=== PATIENT | female | born 1940 | race Caucasian/White ===

== ENCOUNTER 2020-06-09 10:06 | Inpatient (IN) | payer MEDICARE ==
[2020-06-09] MEDS ORDERED: oxyCODONE 5 MG Tab PO PRN (14:51)
[2020-06-09] MEDS ORDERED: Albuterol 8 GM Inhaler INH PRN (14:51)
[2020-06-09] MEDS: Oxybutynin 5 MG Tab PO SCH ×2 (15:52→20:02)
[2020-06-09] MEDS: Acetaminophen 325 MG Tab PO PRN (15:52)
--- NOTE | 2020-06-09 16:38 | PCM.HP.2 ---
H&P History of Present Illness - General Date of Service: 06/09/20 Admit Problem/Dx: Admission Diagnosis/Problem Admission Diagnosis/Problem Hip fracture requiring operative repair Source of Information: Patient History Limitations: Reports: No Limitations - History of Present Illness Initial Comments - Free Text/Narative: Macey is a 80 yo female who had ESTEFANI( left) last week.She is here for rehab.She complains of being tired,but her hip pain is much improved,and relived by Tyenol. She had post anemia( hgb 7.9) on discharge. Her pas medical history is extensive,with HTN,CAD,COPD,chronic chest pain,anxiety,Constipation,CKD Stage III left hip Pain Score (Numeric/FACES): 5 - Related Data Allergies/Adverse Reactions: Allergies Allergy/AdvReac Type Severity Reaction Status Date / Time No Known Allergies Allergy Verified 05/28/18 09:00 Home Medications: Home Meds Omeprazole [Prilosec] 20 mg PO DAILY@0600 06/12/14 [History] atorvaSTATin [Lipitor] 10 mg PO BEDTIME 05/27/18 [History] Acetaminophen [Tylenol] 650 mg PO Q4H PRN 06/09/20 [History] Albuterol Sulfate 3 ml IH QID PRN 06/09/20 [History] Albuterol [Ventolin HFA] 2 puff IH Q4H PRN 06/09/20 [History] Aspirin [Halfprin] 81 mg PO BID 06/09/20 [History] Diltiazem [Dilacor XR] 240 mg PO DAILY 06/09/20 [History] Docusate Sodium 100 mg PO DAILY 06/09/20 [History] Docusate Sodium/Sennosides [Senna Plus] 1 tab PO BID 06/09/20 [History] Ferrous Fumarate/Vitamin C [Vitron-C] 1 tab PO DAILY 06/09/20 [History] Fluticasone Propion/Salmeterol [Advair 250-50 Diskus] 1 puff IH BID 06/09/20 [History] Lactulose [Chronulac] 15 ml PO TID 06/09/20 [History] Morphine [MS Contin] 15 mg PO BID 06/09/20 [History] Ondansetron [Zofran ODT] 4 mg PO Q4H PRN 06/09/20 [History] Oxybutynin 5 mg PO TID 06/09/20 [History] Venlafaxine [Effexor XR] 150 mg PO DAILY 06/09/20 [History] oxyCODONE 5 mg PO Q4H PRN 06/09/20 [History] oxyCODONE 10 mg PO Q4H PRN 06/09/20 [History] polyethylene glycoL 3350 [MiraLAX] 17 gm PO DAILY 06/09/20 [History] Past Medical History HEENT History: Reports: Allergic Rhinitis, Cataract, Glaucoma, Hard of Hearing, Impaired Vision Cardiovascular History: Reports: High Cholesterol, Hypertension, Other (See Below) Other Cardiovascular History: ASHD Respiratory History: Reports: Sleep Apnea, Other (See Below) Other Respiratory History: TOBACCO USER Gastrointestinal History: Reports: Colon Polyp, GERD Genitourinary History: Reports: Urinary Incontinence [employer] A[employer]LYST History: Reports: , Other (See Below) Other OB/BYN History: ABNORMAL PAP Musculoskeletal History: Reports: Back Pain, Chronic, Other (See Below) Other Musculoskeletal History: LUMBAR SPINAL STENOSIS, DDD Neurological History: Psychiatric History: Reports: Depression Endocrine/Metabolic History: Reports: None Hematologic History: Reports: Anemia Immunologic History: Reports: None Oncologic (Cancer) History: Reports: None Dermatologic History: Reports: None - Past Surgical History Head Surgeries/Procedures: Reports: None HEENT Surgical History: Reports: Cataract Surgery, Eye Surgery Cardiovascular Surgical History: Reports: None Respiratory Surgical History: Reports: None GI Surgical History: Reports: Colonoscopy Female Surgical History: Reports: None Endocrine Surgical History: Reports: None Neurological Surgical History: Reports: Laminectomy, Lumbar Spine, Spinal Fusion Musculoskeletal Surgical History: Reports: None Oncologic Surgical History: Reports: None Dermatological Surgical History: Reports: None Social & Family History - Family History Family Medical History: No Pertinent Family History - Caffeine Use Caffeine Use: Reports: None H&P Review of Systems - Review of Systems: Review Of Systems: Comprehensive ROS is negative, except as noted in HPI. Exam - Exam Exam: See Below - Vital Signs Vital Signs: Last Vital Signs Temp 98.4 F 06/09/20 14:15 Pulse 59 L 06/09/20 14:15 Resp 15 06/09/20 14:15 BP 125/46 L 06/09/20 14:15 Pulse Ox 94 L 06/09/20 14:15 Weight: 71.668 kg - Exam Quality Assessment: DVT Prophylaxis General: Alert HEENT: PERRLA Neck: Supple Lungs: Clear to Auscultation Cardiovascular: Regular Rate GI/Abdominal Exam: Normal Bowel Sounds, Soft Extremities: Normal Inspection Neurological: Cranial Nerves Intact Neuro Extensive - Mental Status: Alert, Oriented x3 Psychiatric: Alert, Normal Affect Sepsis Event Note - Evaluation Sepsis Screening Result: No Definite Risk - Focused Exam Vital Signs: Vital Signs Temp Pulse Resp BP Pulse Ox 06/09/20 14:15 98.4 F 59 L 15 125/46 L 94 L - Problem List (1) H/O total hip arthroplasty SNOMED Code(s): 257965993370, 867568814924 ICD Code: Z96.649 - PRESENCE OF UNSPECIFIED ARTIFICIAL HIP JOINT Status: Acute Current Visit: Yes Qualifiers: Laterality: left Qualified Code(s): Z96.642 - Presence of left artificial hip joint (2) Debility SNOMED Code(s): 49313939 ICD Code: R53.81 - OTHER MALAISE Status: Acute Current Visit: Yes (3) HTN (hypertension) SNOMED Code(s): 69771493 ICD Code: I10 - ESSENTIAL (PRIMARY) HYPERTENSION Status: Chronic Current Visit: Yes Qualifiers: Hypertension type: essential hypertension Qualified Code(s): I10 - Essential (primary) hypertension (4) CAD (coronary artery disease) SNOMED Code(s): 51270454 ICD Code: I25.10 - ATHSCL HEART DISEASE OF [place] CORONARY ARTERY W/O ANG PCTRS Status: Chronic Current Visit: Yes Qualifiers: Coronary Disease-Associated Artery/Lesion type: [place] artery [place] vs. transplanted heart: [place] heart Associated angina: with stable angina Qualified Code(s): I25.118 - Atherosclerotic heart disease of [place] coronary artery with other forms of angina pectoris (5) MDD (major depressive disorder) SNOMED Code(s): 868283409 ICD Code: F32.9 - MAJOR DEPRESSIVE DISORDER, SINGLE EPISODE, UNSPECIFIED Status: Acute Current Visit: Yes Qualifiers: Major depression recurrence: recurrent Active/Remission status: currently active Major depression episode severity: moderate Qualified Code(s): F33.1 - Major depressive disorder, recurrent, moderate (6) Constipation SNOMED Code(s): 11061831 ICD Code: K59.00 - CONSTIPATION, UNSPECIFIED Status: Chronic Current Visit: Yes Qualifiers: Constipation type: unspecified constipation type Qualified Code(s): K59.00 - Constipation, unspecified (7) Anemia SNOMED Code(s): 576454494 ICD Code: D64.9 - ANEMIA, UNSPECIFIED Status: Acute Current Visit: Yes Qualifiers: Anemia type: iron deficiency (8) Constipation SNOMED Code(s): 71806234 ICD Code: K59.00 - CONSTIPATION, UNSPECIFIED Status: Chronic Current Visit: No Qualifiers: Constipation type: unspecified constipation type Qualified Code(s): K59.00 - Constipation, unspecified Problem List Initiated/Reviewed/Updated: Yes Orders Last 24hrs: Active Orders 24 hr Category Date Time Status Patient Status [ADT] Routine ADT 06/09/20 14:47 Active Height and Weight [RC] WEEKLY Care 06/09/20 14:47 Active Oxygen Therapy [RC] PRN Care 06/09/20 14:47 Active RT Aerosol Therapy [RC] ASDIRECTED Care 06/09/20 14:52 Active RT Post Treatment Assessment [RC] Click to Edit Care 06/09/20 14:52 Active Up With Assistance [RC] ASDIRECTED Care 06/09/20 14:47 Active VTE/DVT Education [RC] Per Unit Routine Care 06/09/20 14:47 Active Vital Signs [RC] PER UNIT ROUTINE Care 06/09/20 14:47 Active OT Evaluation and Treatment [CONS] Routine Cons 06/09/20 14:47 Active PT Evaluation and Treatment [CONS] Routine Cons 06/09/20 14:47 Active Regular Diet [DIET] Diet 06/09/20 Breakfast Active Acetaminophen [TylenoL] Med 06/09/20 14:51 Active 650 mg PO Q4H PRN Albuterol [Proventil Neb Soln] Med 06/09/20 14:51 Active 2.5 mg NEB QID PRN Albuterol [Ventolin HFA] Med 06/09/20 14:51 Active 0 gm INH Q4H PRN Ascorbic Acid [Vitamin C] Med 06/10/20 09:00 Active 500 mg PO DAILY Aspirin [Halfprin] Med 06/09/20 21:00 Active 81 mg PO BID Diltiazem [Dilacor XR] Med 06/10/20 09:00 Active 240 mg PO DAILY Docusate Sodium [Colace] Med 06/10/20 09:00 Active 100 mg PO DAILY Docusate Sodium/Sennosides [Senna Plus] Med 06/09/20 21:00 Active 1 tab PO BID Ferrous Sulfate Med 06/10/20 09:00 Active 325 mg PO DAILY Lactulose [Chronulac] Med 06/09/20 21:00 Active 10 gm PO TID Mometasone/Formoterol [Dulera 200-5 MCG] Med 06/09/20 21:00 Active 2 puff IH BID Morphine [MS Contin] Med 06/09/20 21:00 Active 15 mg PO BID Ondansetron [Zofran ODT] Med 06/09/20 14:51 Active 4 mg PO Q4H PRN Oxybutynin Med 06/09/20 15:00 Active 5 mg PO TID Pantoprazole [ProTONIX] Med 06/10/20 06:00 Active 40 mg PO DAILY@0600 Venlafaxine [Effexor XR] Med 06/10/20 09:00 Active 150 mg PO DAILY atorvaSTATin [Lipitor] Med 06/09/20 21:00 Active 10 mg PO BEDTIME oxyCODONE Med 06/09/20 14:51 Active 10 mg PO Q4H PRN oxyCODONE Med 06/09/20 14:51 Active 5 mg PO Q4H PRN polyethylene glycoL 3350 [MiraLAX] Med 06/10/20 09:00 Active 17 gm PO DAILY Resuscitation Status Routine Resus Stat 06/09/20 14:47 Ordered Medication Orders Acetaminophen (Tylenol) 650 mg PO Q4H PRN PRN Reason: mild pain Last Admin: 06/09/20 15:52 Dose: 650 mg Documented by: CLARY Albuterol (Ventolin Hfa) 0 gm INH Q4H PRN PRN Reason: Shortness of Breath Albuterol (Proventil Neb Soln) 2.5 mg NEB QID PRN PRN Reason: Shortness of Breath Ascorbic Acid (Vitamin C) 500 mg PO DAILY [facility] Aspirin (Halfprin) 81 mg PO BID [facility] Stop: 07/06/20 23:59 Atorvastatin Calcium (Lipitor) 10 mg PO BEDTIME [facility] Diltiazem HCl (Dilacor Xr) 240 mg PO DAILY [facility] Docusate Sodium (Colace) 100 mg PO DAILY [facility] Ferrous Sulfate (Ferrous Sulfate) 325 mg PO DAILY [facility] Lactulose (Chronulac) 10 gm PO TID [facility] Mometasone Furoate/Formoterol Fumar (Dulera 200-5 Mcg) 2 puff IH BID [facility] Morphine Sulfate (Ms Contin) 15 mg PO BID [facility] Ondansetron HCl (Zofran Odt) 4 mg PO Q4H PRN PRN Reason: Nausea Oxybutynin Chloride (Oxybutynin) 5 mg PO TID [facility] Last Admin: 06/09/20 15:52 Dose: 5 mg Documented by: CLARY Oxycodone HCl (Oxycodone) 5 mg PO Q4H PRN PRN Reason: pain 4-6/10 Oxycodone HCl (Oxycodone) 10 mg PO Q4H PRN PRN Reason: pain 7-10/10 Pantoprazole Sodium (Protonix) 40 mg PO DAILY@0600 [facility] Polyethylene Glycol (Miralax) 17 gm PO DAILY [facility] Senna/Docusate Sodium (Senna Plus) 1 tab PO BID [facility] Venlafaxine HCl (Effexor Xr) 150 mg PO DAILY [facility] Assessment/Plan Comment:: Admit to Swing bed/with orders from [place]. PT/OT consult.Resume Home Meds-I appreciate Pharmacy's help.
[2020-06-09] MEDS: Lactulose Soln 10 GM/15 ML 15 ML UD Cup PO SCH (20:00)
[2020-06-09] MEDS: Formoterol/Mometasone 200-5 MCG 8.8 GM Inhaler IH SCH (20:00)
[2020-06-09] MEDS: Aspirin 81 MG Tab.EC PO SCH (20:01)
[2020-06-09] MEDS: atorvaSTATin 10 MG Tab PO SCH (20:01)
[2020-06-09] MEDS: Morphine 15 MG Tab.ER PO SCH (20:10)
[2020-06-10] MEDS: oxyCODONE 5 MG Tab PO PRN (03:19)
[2020-06-10] MEDS: Ondansetron 4 MG Tab.DIS PO PRN ×2 (05:57→20:32)
[2020-06-10] MEDS: Pantoprazole 40 MG Tab.CR PO SCH (05:57)
[2020-06-10] MEDS: Acetaminophen 325 MG Tab PO PRN (06:54)
[2020-06-10] MEDS: Formoterol/Mometasone 200-5 MCG 8.8 GM Inhaler IH SCH ×2 (08:28→20:27)
[2020-06-10] MEDS: Lactulose Soln 10 GM/15 ML 15 ML UD Cup PO SCH ×3 (08:29→20:27)
[2020-06-10] MEDS: Docusate Sodium 100 MG Cap PO SCH (08:29)
[2020-06-10] MEDS: Diltiazem 240 MG Cap.ER PO SCH (08:29)
[2020-06-10] MEDS: Venlafaxine 150 MG Cap.ER PO SCH (08:29)
[2020-06-10] MEDS: Ferrous Sulfate 325 MG Tab PO SCH (08:30)
[2020-06-10] MEDS: Polyethylene Glycol 3350 Powder 17 GM Packet PO SCH (08:30)
[2020-06-10] MEDS: Aspirin 81 MG Tab.EC PO SCH ×2 (08:30→20:28)
[2020-06-10] MEDS: Oxybutynin 5 MG Tab PO SCH ×3 (08:31→20:29)
[2020-06-10] MEDS: Ascorbic Acid 500 MG Tab PO SCH (08:32)
[2020-06-10] MEDS: Morphine 15 MG Tab.ER PO SCH ×2 (08:34→20:33)
[2020-06-10] MEDS: Ibuprofen 200 MG Tab PO SCH ×2 (13:38→17:56)
[2020-06-10] MEDS: Acetaminophen 500 MG Tab PO SCH ×2 (13:39→17:57)
[2020-06-10] MEDS: atorvaSTATin 10 MG Tab PO SCH (20:28)
[2020-06-11] MEDS: Acetaminophen 500 MG Tab PO SCH ×4 (00:25→17:57)
[2020-06-11] MEDS: Ibuprofen 200 MG Tab PO SCH ×4 (00:25→17:56)
[2020-06-11] MEDS: Pantoprazole 40 MG Tab.CR PO SCH (05:35)
[2020-06-11] MEDS: Ondansetron 4 MG Tab.DIS PO PRN ×2 (05:38→11:06)
[2020-06-11] MEDS: Docusate Sodium 100 MG Cap PO SCH (08:18)
[2020-06-11] MEDS: Formoterol/Mometasone 200-5 MCG 8.8 GM Inhaler IH SCH ×2 (08:18→20:36)
[2020-06-11] MEDS: Lactulose Soln 10 GM/15 ML 15 ML UD Cup PO SCH ×3 (08:18→20:36)
[2020-06-11] MEDS: Ferrous Sulfate 325 MG Tab PO SCH (08:19)
[2020-06-11] MEDS: Aspirin 81 MG Tab.EC PO SCH ×2 (08:19→20:37)
[2020-06-11] MEDS: Venlafaxine 150 MG Cap.ER PO SCH (08:19)
[2020-06-11] MEDS: Morphine 15 MG Tab.ER PO SCH ×2 (08:20→20:40)
[2020-06-11] MEDS: Polyethylene Glycol 3350 Powder 17 GM Packet PO SCH (08:20)
[2020-06-11] MEDS: Oxybutynin 5 MG Tab PO SCH ×3 (08:22→20:37)
[2020-06-11] MEDS: Ascorbic Acid 500 MG Tab PO SCH (08:23)
[2020-06-11] MEDS: Diltiazem 240 MG Cap.ER PO SCH (08:26)
[2020-06-11] MEDS: atorvaSTATin 10 MG Tab PO SCH (20:37)
[2020-06-12] MEDS: Ibuprofen 200 MG Tab PO SCH ×4 (00:24→17:14)
[2020-06-12] MEDS: Acetaminophen 500 MG Tab PO SCH ×4 (00:24→17:14)
[2020-06-12] MEDS: Pantoprazole 40 MG Tab.CR PO SCH (05:32)
[2020-06-12] MEDS: Lactulose Soln 10 GM/15 ML 15 ML UD Cup PO SCH ×3 (09:34→20:37)
[2020-06-12] MEDS: Docusate Sodium 100 MG Cap PO SCH (09:34)
[2020-06-12] MEDS: Formoterol/Mometasone 200-5 MCG 8.8 GM Inhaler IH SCH ×2 (09:35→20:37)
[2020-06-12] MEDS: Venlafaxine 150 MG Cap.ER PO SCH (09:35)
[2020-06-12] MEDS: Diltiazem 240 MG Cap.ER PO SCH (09:35)
[2020-06-12] MEDS: Ferrous Sulfate 325 MG Tab PO SCH (09:35)
[2020-06-12] MEDS: Morphine 15 MG Tab.ER PO SCH ×2 (09:36→20:37)
[2020-06-12] MEDS: Aspirin 81 MG Tab.EC PO SCH ×2 (09:36→20:38)
[2020-06-12] MEDS: Oxybutynin 5 MG Tab PO SCH ×3 (09:37→20:37)
[2020-06-12] MEDS: Ascorbic Acid 500 MG Tab PO SCH (09:38)
[2020-06-12] MEDS: Polyethylene Glycol 3350 Powder 17 GM Packet PO SCH (09:39)
[2020-06-12] MEDS: oxyCODONE 5 MG Tab PO PRN (11:18)
[2020-06-12] MEDS: Ondansetron 4 MG Tab.DIS PO PRN (12:20)
[2020-06-12] MEDS ORDERED: traMADol 50 MG Tab PO PRN (13:18)
[2020-06-12] MEDS: atorvaSTATin 10 MG Tab PO SCH (20:38)
[2020-06-13] MEDS: Ibuprofen 200 MG Tab PO SCH ×4 (00:10→17:49)
[2020-06-13] MEDS: Acetaminophen 500 MG Tab PO SCH ×4 (00:10→17:49)
[2020-06-13] MEDS: Pantoprazole 40 MG Tab.CR PO SCH (06:05)
[2020-06-13] MEDS: Ondansetron 4 MG Tab.DIS PO PRN ×3 (08:13→20:09)
[2020-06-13] MEDS: Morphine 15 MG Tab.ER PO SCH ×2 (08:14→20:09)
[2020-06-13] MEDS: Lactulose Soln 10 GM/15 ML 15 ML UD Cup PO SCH ×3 (08:17→20:09)
[2020-06-13] MEDS: Diltiazem 240 MG Cap.ER PO SCH (08:17)
[2020-06-13] MEDS: Docusate Sodium 100 MG Cap PO SCH (08:17)
[2020-06-13] MEDS: Venlafaxine 150 MG Cap.ER PO SCH (08:18)
[2020-06-13] MEDS: Formoterol/Mometasone 200-5 MCG 8.8 GM Inhaler IH SCH ×2 (08:18→20:08)
[2020-06-13] MEDS: Aspirin 81 MG Tab.EC PO SCH ×2 (08:19→20:09)
[2020-06-13] MEDS: Ferrous Sulfate 325 MG Tab PO SCH (08:19)
[2020-06-13] MEDS: Polyethylene Glycol 3350 Powder 17 GM Packet PO SCH (08:20)
[2020-06-13] MEDS: Oxybutynin 5 MG Tab PO SCH ×3 (08:20→20:09)
[2020-06-13] MEDS: Ascorbic Acid 500 MG Tab PO SCH (08:21)
[2020-06-13] MEDS ORDERED: Aluminum Hydroxide/Magnesium Hydroxide Susp 30 ML Cup PO PRN (12:07)
[2020-06-13] MEDS: atorvaSTATin 10 MG Tab PO SCH (20:09)
[2020-06-14] MEDS: Acetaminophen 500 MG Tab PO SCH ×5 (00:03→23:56)
[2020-06-14] MEDS: Ibuprofen 200 MG Tab PO SCH ×3 (00:04→12:34)
[2020-06-14] MEDS: Pantoprazole 40 MG Tab.CR PO SCH (05:21)
[2020-06-14] MEDS: Ondansetron 4 MG Tab.DIS PO PRN (08:28)
[2020-06-14] MEDS: Morphine 15 MG Tab.ER PO SCH ×2 (08:28→20:07)
[2020-06-14] MEDS: Polyethylene Glycol 3350 Powder 17 GM Packet PO SCH (08:30)
[2020-06-14] MEDS: Lactulose Soln 10 GM/15 ML 15 ML UD Cup PO SCH (08:30)
[2020-06-14] MEDS: Oxybutynin 5 MG Tab PO SCH ×3 (08:32→20:01)
[2020-06-14] MEDS: Docusate Sodium 100 MG Cap PO SCH (08:32)
[2020-06-14] MEDS: Aspirin 81 MG Tab.EC PO SCH ×2 (08:33→20:01)
[2020-06-14] MEDS: Diltiazem 240 MG Cap.ER PO SCH (08:33)
[2020-06-14] MEDS: Venlafaxine 150 MG Cap.ER PO SCH (08:34)
[2020-06-14] MEDS: Ascorbic Acid 500 MG Tab PO SCH (08:34)
[2020-06-14] MEDS: Formoterol/Mometasone 200-5 MCG 8.8 GM Inhaler IH SCH ×2 (08:36→20:00)
[2020-06-14] MEDS: Ferrous Sulfate 325 MG Tab PO SCH (08:36)
--- NOTE | 2020-06-14 10:05 | PCM.PN ---
- General Info Date of Service: 06/14/20 Subjective Update: Luxs nausea is better today, has small emesis yesterday during PT/OT. She was unable to take Zofran as it was too early after last dose given, so she drank some 7up which resolved her symptoms. Eating breakfast this morning without issue. She has only had Tramadol x 1 since ordered. She also has been having bradycardia last couple of days, she is on Diltiazem 240 mg daily. - Patient Data Vitals - Most Recent: Last Vital Signs Temp 97.6 F 06/13/20 06:27 Pulse 62 06/13/20 06:27 Resp 18 06/13/20 06:27 BP 143/54 H 06/13/20 06:27 Pulse Ox 97 06/13/20 06:27 Weight - Most Recent: 158 lb Med Orders - Current: Current Medications Acetaminophen (Tylenol Extra Strength) 500 mg PO Q6H [facility] Last Admin: 06/14/20 05:20 Dose: 500 mg Documented by: Al Hydroxide/Mg Hydroxide (Mag-Al Susp) 30 ml PO Q4H PRN PRN Reason: Heartburn Last Admin: 06/13/20 12:15 Dose: 30 ml Documented by: Albuterol (Ventolin Hfa) 0 gm INH Q4H PRN PRN Reason: Shortness of Breath Albuterol (Proventil Neb Soln) 2.5 mg NEB QID PRN PRN Reason: Shortness of Breath Ascorbic Acid (Vitamin C) 500 mg PO DAILY [facility] Last Admin: 06/14/20 08:34 Dose: 500 mg Documented by: Aspirin (Halfprin) 81 mg PO BID [facility] Stop: 07/06/20 23:59 Last Admin: 06/14/20 08:33 Dose: 81 mg Documented by: Aspirin (Halfprin) 81 mg PO DAILY [facility] Atorvastatin Calcium (Lipitor) 10 mg PO BEDTIME [facility] Last Admin: 06/13/20 20:09 Dose: 10 mg Documented by: Diltiazem HCl (Cardizem Cd) 120 mg PO DAILY [facility] Docusate Sodium (Colace) 100 mg PO DAILY [facility] Last Admin: 06/14/20 08:32 Dose: 100 mg Documented by: Ferrous Sulfate (Ferrous Sulfate) 325 mg PO DAILY [facility] Last Admin: 06/14/20 08:36 Dose: 325 mg Documented by: Ibuprofen (Motrin) 200 mg PO Q6H [facility] Last Admin: 06/14/20 05:20 Dose: 200 mg Documented by: Lactulose (Chronulac) 10 gm PO TID [facility] Last Admin: 06/14/20 08:30 Dose: 10 gm Documented by: Mometasone Furoate/Formoterol Fumar (Dulera 200-5 Mcg) 2 puff IH BID [facility] Last Admin: 06/14/20 08:36 Dose: 2 puff Documented by: Morphine Sulfate (Ms Contin) 15 mg PO BID [facility] Last Admin: 06/14/20 08:28 Dose: 15 mg Documented by: Ondansetron HCl (Zofran Odt) 4 mg PO Q4H PRN PRN Reason: Nausea Last Admin: 06/14/20 08:28 Dose: 4 mg Documented by: Oxybutynin Chloride (Oxybutynin) 5 mg PO TID [facility] Last Admin: 06/14/20 08:32 Dose: 5 mg Documented by: Pantoprazole Sodium (Protonix) 40 mg PO DAILY@0600 [facility] Last Admin: 06/14/20 05:21 Dose: 40 mg Documented by: Polyethylene Glycol (Miralax) 17 gm PO DAILY [facility] Last Admin: 06/14/20 08:30 Dose: 17 gm Documented by: Senna/Docusate Sodium (Senna Plus) 1 tab PO BID [facility] Last Admin: 06/14/20 08:34 Dose: 1 tab Documented by: Tramadol HCl (Ultram) 50 mg PO Q6H PRN PRN Reason: Pain (severe 7-10) Last Admin: 06/13/20 17:01 Dose: 50 mg Documented by: Venlafaxine HCl (Effexor Xr) 150 mg PO DAILY [facility] Last Admin: 06/14/20 08:34 Dose: 150 mg Documented by: Discontinued Medications Acetaminophen (Tylenol) 650 mg PO Q4H PRN PRN Reason: mild pain Last Admin: 06/10/20 06:54 Dose: 650 mg Documented by: Diltiazem HCl (Dilacor Xr) 240 mg PO DAILY [facility] Last Admin: 06/14/20 08:33 Dose: 240 mg Documented by: Oxycodone HCl (Oxycodone) 5 mg PO Q4H PRN PRN Reason: pain 4-6/10 Stop: 06/12/20 16:00 Last Admin: 06/12/20 11:18 Dose: 5 mg Documented by: Oxycodone HCl (Oxycodone) 10 mg PO Q4H PRN PRN Reason: pain 7-04/16 Stop: 06/12/20 16:00 Last Admin: 06/09/20 19:00 Dose: 10 mg Documented by: - Exam General: Alert, Oriented, Cooperative, No Acute Distress Lungs: Clear to Auscultation, Normal Respiratory Effort. No: Crackles, Wheezing Cardiovascular: Bradycardia GI/Abdominal Exam: Normal Bowel Sounds, Soft, Non-Tender, No Distention Sepsis Event Note - Evaluation Sepsis Screening Result: No Definite Risk - Problem List & Annotations (1) H/O total hip arthroplasty SNOMED Code(s): 971270271461, 921372778479 Code(s): Z96.649 - PRESENCE OF UNSPECIFIED ARTIFICIAL HIP JOINT Status: Acute Current Visit: Yes Qualifiers: Laterality: left Qualified Code(s): Z96.642 - Presence of left artificial hip joint (2) Anemia SNOMED Code(s): 828163937 Code(s): D64.9 - ANEMIA, UNSPECIFIED Status: Chronic Current Visit: Yes Qualifiers: Anemia type: iron deficiency (3) MDD (major depressive disorder) SNOMED Code(s): 068401788 Code(s): F32.9 - MAJOR DEPRESSIVE DISORDER, SINGLE EPISODE, UNSPECIFIED Status: Chronic Current Visit: Yes Qualifiers: Major depression recurrence: recurrent Active/Remission status: currently active Major depression episode severity: moderate Qualified Code(s): F33.1 - Major depressive disorder, recurrent, moderate (4) CAD (coronary artery disease) SNOMED Code(s): 61290447 Code(s): I25.10 - ATHSCL HEART DISEASE OF [place] CORONARY ARTERY W/O ANG PCTRS Status: Chronic Current Visit: Yes Qualifiers: Coronary Disease-Associated Artery/Lesion type: [place] artery [place] vs. transplanted heart: [place] heart Associated angina: with stable angina Qualified Code(s): I25.118 - Atherosclerotic heart disease of [place] coronary artery with other forms of angina pectoris (5) Constipation SNOMED Code(s): 50671773 Code(s): K59.00 - CONSTIPATION, UNSPECIFIED Status: Chronic Current Visit: Yes Qualifiers: Constipation type: unspecified constipation type Qualified Code(s): K59.00 - Constipation, unspecified (6) HTN (hypertension) SNOMED Code(s): 12302839 Code(s): I10 - ESSENTIAL (PRIMARY) HYPERTENSION Status: Chronic Current Visit: Yes Qualifiers: Hypertension type: essential hypertension Qualified Code(s): I10 - Essential (primary) hypertension (7) Osteoarthritis SNOMED Code(s): 755844646 Code(s): M19.90 - UNSPECIFIED OSTEOARTHRITIS, UNSPECIFIED SITE Status: Chronic Current Visit: Yes Qualifiers: Osteoarthritis location: multiple joints - Problem List Review Problem List Initiated/Reviewed/Updated: Yes - My Orders Last 24 Hours: My Active Orders 06/13/20 11:11 Anti-Embolism Stockings [place] [Antiembolic Hose] [OM.PC] Routine 06/13/20 12:07 Alum Hydroxide/Mag Hydroxide [Mag-Al Susp] 30 ml PO Q4H PRN 06/15/20 09:00 Diltiazem [Cardizem CD] 120 mg PO DAILY - Plan Plan:: 1. During OT therapy this morning, she was retching and complaining of chest pain, will get EKG and troponin stat. 2. Bradycardia: will decrease Diltiazem 120 mg daily, will monitor and adjust as necessary. 3. Left ESTEFANI: continue PT/OT, home MSContin bid, tylenol 500 mg/ibuprofen 200 mg q6h scheduled and Tramadol as needed. Will continue to monitor her nausea and adjust her medications as needed. 4. Care conference today at 1pm.
[2020-06-14] MEDS ORDERED: Nitroglycerin 0.4 MG Tab.SL SL PRN (10:17)
[2020-06-14] MEDS: Simethicone 80 MG Tab.Chew PO SCH ×3 (10:45→20:02)
[2020-06-14] MEDS ORDERED: Alum Hydroxide/Mag Hydroxide 15 ML, Lidocaine 2% 15 ML PO ONE ×2 (11:31)
[2020-06-14] MEDS: Lactated Ringers 1,000 ML IV SCH (15:35)
[2020-06-14] MEDS: atorvaSTATin 10 MG Tab PO SCH (20:01)
[2020-06-15] MEDS: Lactated Ringers 1,000 ML IV SCH ×3 (00:09→21:00)
[2020-06-15] MEDS: Acetaminophen 500 MG Tab PO SCH ×3 (06:00→17:05)
[2020-06-15] MEDS: Pantoprazole 40 MG Tab.CR PO SCH (06:00)
[2020-06-15] MEDS: Morphine 15 MG Tab.ER PO SCH ×2 (08:34→20:06)
[2020-06-15] MEDS: Formoterol/Mometasone 200-5 MCG 8.8 GM Inhaler IH SCH ×2 (08:35→20:07)
[2020-06-15] MEDS: Sodium Polystyrene Sulfonate 15 GM/60 ML Susp 60 ML Bot PO SCH ×2 (08:36→16:33)
[2020-06-15] MEDS: Ferrous Sulfate 325 MG Tab PO SCH (08:36)
[2020-06-15] MEDS: Docusate Sodium 100 MG Cap PO SCH (08:36)
[2020-06-15] MEDS: Venlafaxine 150 MG Cap.ER PO SCH (08:36)
[2020-06-15] MEDS: Ascorbic Acid 500 MG Tab PO SCH (08:37)
[2020-06-15] MEDS: Oxybutynin 5 MG Tab PO SCH ×3 (08:37→20:05)
[2020-06-15] MEDS: Polyethylene Glycol 3350 Powder 17 GM Packet PO SCH (08:37)
[2020-06-15] MEDS: Aspirin 81 MG Tab.EC PO SCH ×2 (08:37→20:06)
[2020-06-15] MEDS: Simethicone 80 MG Tab.Chew PO SCH ×2 (08:37→12:55)
[2020-06-15] MEDS ORDERED: Diltiazem 120 MG Cap.CD PO SCH (09:00)
[2020-06-15] MEDS: hydrOXYzine HCl 50 MG/ML SDV IM PRN ×2 (11:21→22:01)
[2020-06-15] MEDS: Ondansetron 4 MG Tab.DIS PO PRN (14:43)
[2020-06-15] MEDS ORDERED: Famotidine 20 MG/2 ML SDV IVPUSH ONE (15:08)
[2020-06-15] MEDS ORDERED: Simethicone 80 MG Tab.Chew PO PRN (15:48)
--- NOTE | 2020-06-15 15:56 | PCM.PN ---
- General Info Date of Service: 06/15/20 Subjective Update: Having dry heaves today, spit up some mucus and scant amount of bile after her pills this morning. Did not vomit her pills up. States she is having heartburn but no specific site of pain. Her potassium came up this morning. Not on anything that would elevate her potassium per pharmacy. Neo her son was notified of change in her condition. - Patient Data Vitals - Most Recent: Last Vital Signs Temp 98.1 F 06/15/20 07:20 Pulse 46 L 06/15/20 08:35 Resp 20 06/15/20 07:20 BP 120/51 L 06/15/20 08:35 Pulse Ox 95 06/15/20 14:00 Orthostatic Blood Pressure [ 117/52 Standing] Orthostatic Blood Pressure [ 165/49 Sitting] Weight - Most Recent: 158 lb I&O - Last 24 Hours: Intake & Output 06/15/20 06/15/20 06/15/20 06:59 14:59 22:59 Intake Total 893 932 Balance 893 932 Lab Results Last 24 Hours: Laboratory Results - last 24 hr 06/15/20 06/15/20 06/15/20 Range/Units 06:15 10:50 10:50 Sodium 130 L (135-145) mmol/L Potassium 6.2 H* (3.5-5.3) mmol/L Chloride 99 L (100-110) mmol/L Carbon Dioxide 21 (21-32) mmol/L BUN 40 H (7-18) mg/dL Creatinine 2.2 H* (0.55-1.02) mg/dL Est Cr Clr Drug Dosing 16.13 mL/min Estimated GFR (MDRD) 21 L (>60) BUN/Creatinine Ratio 18.2 (9-20) Glucose 113 (80-116) mg/dL Calcium 8.1 L (8.6-10.2) mg/dL Ur Random Creatinine 51 mg/dL Ur Random Sodium 23 mmol/L Med Orders - Current: Current Medications Acetaminophen (Tylenol Extra Strength) 500 mg PO Q6H [facility] Last Admin: 06/15/20 12:55 Dose: 500 mg Documented by: Albuterol (Ventolin Hfa) 0 gm INH Q4H PRN PRN Reason: Shortness of Breath Albuterol (Proventil Neb Soln) 2.5 mg NEB QID PRN PRN Reason: Shortness of Breath Ascorbic Acid (Vitamin C) 500 mg PO DAILY [facility] Last Admin: 06/15/20 08:37 Dose: 500 mg Documented by: Aspirin (Halfprin) 81 mg PO BID [facility] Stop: 07/06/20 23:59 Last Admin: 06/15/20 08:37 Dose: 81 mg Documented by: Aspirin (Halfprin) 81 mg PO DAILY [facility] Atorvastatin Calcium (Lipitor) 10 mg PO BEDTIME [facility] Last Admin: 06/14/20 20:01 Dose: 10 mg Documented by: Docusate Sodium (Colace) 100 mg PO DAILY [facility] Last Admin: 06/15/20 08:36 Dose: 100 mg Documented by: Ferrous Sulfate (Ferrous Sulfate) 325 mg PO DAILY [facility] Last Admin: 06/15/20 08:36 Dose: 325 mg Documented by: Hydroxyzine HCl (Vistaril) 50 mg IM Q6H PRN PRN Reason: Nausea/Vomiting Last Admin: 06/15/20 11:21 Dose: 50 mg Documented by: Lactated Ringer's (Ringers, Lactated) 1,000 mls @ 100 mls/hr IV ASDIRECTED [facility] Last Admin: 06/15/20 11:20 Dose: 100 mls/hr Documented by: Mometasone Furoate/Formoterol Fumar (Dulera 200-5 Mcg) 2 puff IH BID [facility] Last Admin: 06/15/20 08:35 Dose: 2 puff Documented by: Morphine Sulfate (Ms Contin) 15 mg PO BID [facility] Last Admin: 06/15/20 08:34 Dose: 15 mg Documented by: Nitroglycerin (Nitrostat) 0.4 mg SL Q5M PRN PRN Reason: Chest Pain Ondansetron HCl (Zofran Odt) 4 mg PO Q4H PRN PRN Reason: Nausea Last Admin: 06/15/20 14:43 Dose: 4 mg Documented by: Oxybutynin Chloride (Oxybutynin) 5 mg PO BID [facility] Pantoprazole Sodium (Protonix) 40 mg PO DAILY@0600 [facility] Last Admin: 06/15/20 06:00 Dose: 40 mg Documented by: Polyethylene Glycol (Miralax) 17 gm PO DAILY [facility] Last Admin: 06/15/20 08:37 Dose: 17 gm Documented by: Senna/Docusate Sodium (Senna Plus) 1 tab PO BID [facility] Last Admin: 06/15/20 08:36 Dose: 1 tab Documented by: Simethicone (Simethicone) 80 mg PO QIDPCANDBED PRN PRN Reason: Gas Sodium Polystyrene Sulfonate (Kayexalate) 15 gm PO Q6H [facility] Last Admin: 06/15/20 08:36 Dose: 15 gm Documented by: Tramadol HCl (Ultram) 50 mg PO Q6H PRN PRN Reason: Pain (severe 7-10) Stop: 06/16/20 23:59 Last Admin: 06/13/20 17:01 Dose: 50 mg Documented by: Venlafaxine HCl (Effexor Xr) 150 mg PO DAILY [facility] Last Admin: 06/15/20 08:36 Dose: 150 mg Documented by: Discontinued Medications Acetaminophen (Tylenol) 650 mg PO Q4H PRN PRN Reason: mild pain Last Admin: 06/10/20 06:54 Dose: 650 mg Documented by: Al Hydroxide/Mg Hydroxide (Mag-Al Susp) 30 ml PO Q4H PRN PRN Reason: Heartburn Last Admin: 06/13/20 12:15 Dose: 30 ml Documented by: Al Hydroxide/Mg Hydroxide 15 (ml/ Lidocaine HCl 15 ml) 0 ml PO ONETIME ONE Stop: 06/14/20 11:32 Last Admin: 06/14/20 12:31 Dose: 30 ml Documented by: Diltiazem HCl (Dilacor Xr) 240 mg PO DAILY [facility] Last Admin: 06/14/20 08:33 Dose: 240 mg Documented by: Diltiazem HCl (Cardizem Cd) 120 mg PO DAILY [facility] Last Admin: 06/15/20 08:35 Dose: 120 mg Documented by: Famotidine (Pepcid) 20 mg IVPUSH ONETIME ONE Stop: 06/15/20 15:09 Last Admin: 06/15/20 15:28 Dose: 20 mg Documented by: Ibuprofen (Motrin) 200 mg PO Q6H [facility] Last Admin: 06/14/20 12:34 Dose: 200 mg Documented by: Lactulose (Chronulac) 10 gm PO TID [facility] Last Admin: 06/14/20 08:30 Dose: 10 gm Documented by: Oxybutynin Chloride (Oxybutynin) 5 mg PO TID [facility] Last Admin: 06/15/20 08:37 Dose: 5 mg Documented by: Oxycodone HCl (Oxycodone) 5 mg PO Q4H PRN PRN Reason: pain 4-610 Stop: 06/12/20 16:00 Last Admin: 06/12/20 11:18 Dose: 5 mg Documented by: Oxycodone HCl (Oxycodone) 10 mg PO Q4H PRN PRN Reason: pain 7-10/10 Stop: 06/12/20 16:00 Last Admin: 06/09/20 19:00 Dose: 10 mg Documented by: Simethicone (Simethicone) 80 mg PO QIDPCANDBED [facility] Last Admin: 06/15/20 12:55 Dose: 80 mg Documented by: - Exam General: Alert, Oriented, Cooperative, Mild Distress (sitting on edge of bed, dry heaving, gagging) Lungs: Clear to Auscultation, Normal Respiratory Effort Cardiovascular: Bradycardia GI/Abdominal Exam: Soft, Non-Tender, No Distention, Abnormal Bowel Sounds (hypoa ctive). No: Guarding, Rigid, Rebound Extremities: Pallor Sepsis Event Note - Evaluation Sepsis Screening Result: No Definite Risk - Focused Exam Vital Signs: Vital Signs Temp Pulse Pulse Resp BP BP Pulse Ox 06/15/20 14:00 06/15/20 08:35 46 L 120/51 L 06/15/20 07:20 98.1 F 46 L 20 120/51 L 95 06/15/20 06:29 98.2 F 52 L 20 128/49 L 96 06/15/20 04:00 98 F 122/52 L 95 Pulse Ox 06/15/20 14:00 95 06/15/20 08:35 06/15/20 07:20 06/15/20 06:29 06/15/20 04:00 - Problem List & Annotations (1) Hyperkalemia SNOMED Code(s): 08630701 Code(s): E87.5 - HYPERKALEMIA Status: Acute Current Visit: Yes Annotation/Comment:: 6.2 up from 5.9 yesterday, Kayaxelate started 15 mg qid, had a large bowel movement over noon hour. Repeat potassium at 1600. Also has Albuterol nebs as needed hyperkalemia. Blood pressures have been normal, orthostatic hypotension yesterday during therapy, would not do Lasix at this time. If it continues to go up, would need to transfer back to [place] for further renal workup. (2) Nausea & vomiting SNOMED Code(s): 36388512 Code(s): R11.2 - NAUSEA WITH VOMITING, UNSPECIFIED Status: Acute Current Visit: Yes Qualifiers: Vomiting type: unspecified (3) Chronic kidney disease (CKD), stage III (moderate) SNOMED Code(s): 212946447 Code(s): N18.30 - CHRONIC KIDNEY DISEASE, STAGE 3 UNSPECIFIED Status: Chronic Current Visit: Yes Annotation/Comment:: Acute on chronic, Cr 1.8 on 06/10, jumped yesterday to 2.2, remained 2.2 this morning. Urine Cr and Urine Sodium ordered and FeNa was 0.76% which would be suggestive of prerenal state. LR at 100 ml/hr, repeat labs in am. (4) H/O total hip arthroplasty SNOMED Code(s): 300111819423, 266110060355 Code(s): Z96.649 - PRESENCE OF UNSPECIFIED ARTIFICIAL HIP JOINT Status: Acute Current Visit: Yes Qualifiers: Laterality: left Qualified Code(s): Z96.642 - Presence of left artificial hip joint (5) Anemia SNOMED Code(s): 826131350 Code(s): D64.9 - ANEMIA, UNSPECIFIED Status: Chronic Current Visit: Yes Qualifiers: Anemia type: iron deficiency (6) MDD (major depressive disorder) SNOMED Code(s): 240433636 Code(s): F32.9 - MAJOR DEPRESSIVE DISORDER, SINGLE EPISODE, UNSPECIFIED Status: Chronic Current Visit: Yes Qualifiers: Major depression recurrence: recurrent Active/Remission status: currently active Major depression episode severity: moderate Qualified Code(s): F33.1 - Major depressive disorder, recurrent, moderate (7) CAD (coronary artery disease) SNOMED Code(s): 12847809 Code(s): I25.10 - ATHSCL HEART DISEASE OF [place] CORONARY ARTERY W/O ANG PCTRS Status: Chronic Current Visit: Yes Qualifiers: Coronary Disease-Associated Artery/Lesion type: [place] artery [place] vs. transplanted heart: [place] heart Associated angina: with stable angina Qualified Code(s): I25.118 - Atherosclerotic heart disease of [place] coronary artery with other forms of angina pectoris (8) Constipation SNOMED Code(s): 62971949 Code(s): K59.00 - CONSTIPATION, UNSPECIFIED Status: Chronic Current Visit: Yes Qualifiers: Constipation type: unspecified constipation type Qualified Code(s): K59.00 - Constipation, unspecified (9) HTN (hypertension) SNOMED Code(s): 85005044 Code(s): I10 - ESSENTIAL (PRIMARY) HYPERTENSION Status: Chronic Current Visit: Yes Qualifiers: Hypertension type: essential hypertension Qualified Code(s): I10 - Essential (primary) hypertension (10) Osteoarthritis SNOMED Code(s): 229490232 Code(s): M19.90 - UNSPECIFIED OSTEOARTHRITIS, UNSPECIFIED SITE Status: Chronic Current Visit: Yes Qualifiers: Osteoarthritis location: multiple joints - Problem List Review Problem List Initiated/Reviewed/Updated: Yes - My Orders Last 24 Hours: My Active Orders 06/14/20 15:15 Lactated Ringers [Ringers, Lactated] 1,000 ml IV ASDIRECTED 06/15/20 08:00 Sodium Polystyrene Sulfonate [Kayexalate] 15 gm PO Q6H 06/15/20 11:03 hydrOXYzine HCL [Vistaril] 50 mg IM Q6H PRN 06/15/20 15:48 Simethicone 80 mg PO QIDPCANDBED PRN 06/15/20 16:00 POTASSIUM,K [CHEM] Routine 06/15/20 Dinner Regular Diet [DIET] 06/15/20 21:00 Oxybutynin 5 mg PO BID 06/16/20 06:00 BASIC METABOLIC PANEL,BMP [CHEM] Routine - Plan Plan:: 1. Hyperkalemia: stopped Maalox, Kayaxelate 15 mg qid, Albuterol nebs q4h prn, if still remains high at 1600 would add calcium gluconate IV. 2. Acute on CKD: Cr 2.2, FeNa suggestive of prerenal state, LR at 100 ml/hr. 3. Bradycardia: discontinued Diltiazem and monitor vitals and adjust as necessary. 4. Nausea/vomiting: Continue Zofran, added Vistaril 50 mg IM q6h, Pepcid 20 mg IV x 1, if that helps her heartburn may start oral tomorrow night at 10 mg daily. Pantoprazole 40 mg daily. 5. Left ESTEFANI: continue PT/OT, home MSContin bid, tylenol 500 mg q6h scheduled and Tramadol as needed, has not used since Saturday night, stop date 06/16.
[2020-06-15] MEDS: Albuterol 0.083% 2.5 MG/3 ML Neb Soln NEB PRN (19:48)
[2020-06-15] MEDS: atorvaSTATin 10 MG Tab PO SCH (20:05)
[2020-06-16] MEDS: Ondansetron 4 MG Tab.DIS PO PRN ×2 (00:29→05:59)
[2020-06-16] MEDS: Acetaminophen 500 MG Tab PO SCH ×4 (00:29→17:44)
[2020-06-16] MEDS: Pantoprazole 40 MG Tab.CR PO SCH ×2 (05:59→21:12)
[2020-06-16] MEDS: Lactated Ringers 1,000 ML IV SCH ×2 (06:42→18:51)
[2020-06-16] MEDS ORDERED: Alum Hydroxide/Mag Hydroxide 15 ML, Lidocaine 2% 15 ML PO ONE ×2 (08:24)
[2020-06-16] MEDS ORDERED: Pantoprazole 40 MG Vial IVPUSH ONE (08:50)
[2020-06-16] MEDS: Morphine 15 MG Tab.ER PO SCH ×2 (10:00→21:17)
[2020-06-16] MEDS: Ascorbic Acid 500 MG Tab PO SCH (10:01)
[2020-06-16] MEDS: Polyethylene Glycol 3350 Powder 17 GM Packet PO SCH ×2 (10:01→10:10)
[2020-06-16] MEDS: Ferrous Sulfate 325 MG Tab PO SCH (10:01)
[2020-06-16] MEDS: Oxybutynin 5 MG Tab PO SCH ×2 (10:02→21:12)
[2020-06-16] MEDS: Aspirin 81 MG Tab.EC PO SCH ×2 (10:02→21:11)
[2020-06-16] MEDS: Docusate Sodium 100 MG Cap PO SCH (10:03)
[2020-06-16] MEDS: Venlafaxine 150 MG Cap.ER PO SCH (10:03)
[2020-06-16] MEDS: Formoterol/Mometasone 200-5 MCG 8.8 GM Inhaler IH SCH ×2 (10:03→21:10)
[2020-06-16] MEDS ORDERED: Alum Hydroxide/Mag Hydroxide 15 ML, Lidocaine 2% 15 ML PO PRN ×2 (10:42)
--- NOTE | 2020-06-16 11:34 | PCM.PN ---
- General Info Date of Service: 06/16/20 Subjective Update: Her potassium corrected with Kayexalate yesterday, had a couple of good bowel movements. Still having heartburn, dry heaves, states that it is the same as when she was in [place] and even when she was at home. She thinks she still has her gallbladder. Denies any new symptoms. - Patient Data Vitals - Most Recent: Last Vital Signs Temp 98.1 F 06/16/20 07:00 Pulse 80 06/16/20 07:00 Resp 18 06/16/20 07:00 BP 163/76 H 06/16/20 07:00 Pulse Ox 96 06/16/20 07:00 Orthostatic Blood Pressure [ 117/52 Standing] Orthostatic Blood Pressure [ 165/49 Sitting] Weight - Most Recent: 158 lb I&O - Last 24 Hours: Intake & Output 06/15/20 06/16/20 06/16/20 22:59 06:59 14:59 Intake Total 657 873 Balance 657 873 Lab Results Last 24 Hours: Laboratory Results - last 24 hr 06/15/20 06/15/20 06/15/20 Range/Units 10:50 10:50 16:10 Sodium (135-145) mmol/L Potassium 5.2 D (3.5-5.3) mmol/L Chloride (100-110) mmol/L Carbon Dioxide (21-32) mmol/L BUN (7-18) mg/dL Creatinine (0.55-1.02) mg/dL Est Cr Clr Drug Dosing mL/min Estimated GFR (MDRD) (>60) BUN/Creatinine Ratio (9-20) Glucose (80-116) mg/dL Calcium (8.6-10.2) mg/dL Ur Random Creatinine 51 mg/dL Ur Random Sodium 23 mmol/L 06/16/20 Range/Units 06:35 Sodium 137 (135-145) mmol/L Potassium 4.6 (3.5-5.3) mmol/L Chloride 101 (100-110) mmol/L Carbon Dioxide 22 (21-32) mmol/L BUN 28 H D (7-18) mg/dL Creatinine 1.6 H (0.55-1.02) mg/dL Est Cr Clr Drug Dosing 22.18 mL/min Estimated GFR (MDRD) 31 L (>60) BUN/Creatinine Ratio 17.5 (9-20) Glucose 95 (80-116) mg/dL Calcium 8.5 L (8.6-10.2) mg/dL Ur Random Creatinine mg/dL Ur Random Sodium mmol/L Med Orders - Current: Current Medications Acetaminophen (Tylenol Extra Strength) 500 mg PO Q6H [facility] Last Admin: 06/16/20 05:56 Dose: 500 mg Documented by: Albuterol (Ventolin Hfa) 0 gm INH Q4H PRN PRN Reason: Shortness of Breath Albuterol (Proventil Neb Soln) 2.5 mg NEB QID PRN PRN Reason: Shortness of Breath Last Admin: 06/15/20 19:48 Dose: 2.5 mg Documented by: Amlodipine Besylate (Norvasc) 5 mg PO BEDTIME [facility] Ascorbic Acid (Vitamin C) 500 mg PO DAILY [facility] Last Admin: 06/16/20 10:01 Dose: 500 mg Documented by: Aspirin (Halfprin) 81 mg PO BID [facility] Stop: 07/06/20 23:59 Last Admin: 06/16/20 10:02 Dose: 81 mg Documented by: Aspirin (Halfprin) 81 mg PO DAILY [facility] Atorvastatin Calcium (Lipitor) 10 mg PO BEDTIME [facility] Last Admin: 06/15/20 20:05 Dose: 10 mg Documented by: Al Hydroxide/Mg Hydroxide 15 (ml/ Lidocaine HCl 15 ml) 0 ml PO Q4H PRN PRN Reason: Dyspepsia Docusate Sodium (Colace) 100 mg PO DAILY [facility] Last Admin: 06/16/20 10:03 Dose: 100 mg Documented by: Ferrous Sulfate (Ferrous Sulfate) 325 mg PO DAILY [facility] Last Admin: 06/16/20 10:01 Dose: 325 mg Documented by: Hydroxyzine HCl (Vistaril) 50 mg IM Q6H PRN PRN Reason: Nausea/Vomiting Last Admin: 06/15/20 22:01 Dose: 50 mg Documented by: Lactated Ringer's (Ringers, Lactated) 1,000 mls @ 100 mls/hr IV ASDIRECTED [facility] Last Admin: 06/16/20 06:42 Dose: 100 mls/hr Documented by: Mometasone Furoate/Formoterol Fumar (Dulera 200-5 Mcg) 2 puff IH BID [facility] Last Admin: 06/16/20 10:03 Dose: 2 puff Documented by: Morphine Sulfate (Ms Contin) 15 mg PO BID [facility] Last Admin: 06/16/20 10:00 Dose: 15 mg Documented by: Nitroglycerin (Nitrostat) 0.4 mg SL Q5M PRN PRN Reason: Chest Pain Ondansetron HCl (Zofran Odt) 4 mg PO Q4H PRN PRN Reason: Nausea Last Admin: 06/16/20 05:59 Dose: 4 mg Documented by: Oxybutynin Chloride (Oxybutynin) 5 mg PO BID [facility] Last Admin: 06/16/20 10:02 Dose: 5 mg Documented by: Pantoprazole Sodium (Protonix) 40 mg PO DAILY@0600 [facility] Last Admin: 06/16/20 05:59 Dose: 40 mg Documented by: Polyethylene Glycol (Miralax) 17 gm PO DAILY [facility] Last Admin: 06/16/20 10:10 Dose: Not Given Documented by: Senna/Docusate Sodium (Senna Plus) 1 tab PO BID [facility] Last Admin: 06/16/20 10:02 Dose: 1 tab Documented by: Simethicone (Simethicone) 80 mg PO QIDPCANDBED PRN PRN Reason: Gas Tramadol HCl (Ultram) 50 mg PO Q6H PRN PRN Reason: Pain (severe 7-10) Stop: 06/16/20 23:59 Last Admin: 06/13/20 17:01 Dose: 50 mg Documented by: Venlafaxine HCl (Effexor Xr) 150 mg PO DAILY [facility] Last Admin: 06/16/20 10:03 Dose: 150 mg Documented by: Discontinued Medications Acetaminophen (Tylenol) 650 mg PO Q4H PRN PRN Reason: mild pain Last Admin: 06/10/20 06:54 Dose: 650 mg Documented by: Al Hydroxide/Mg Hydroxide (Mag-Al Susp) 30 ml PO Q4H PRN PRN Reason: Heartburn Last Admin: 06/13/20 12:15 Dose: 30 ml Documented by: Al Hydroxide/Mg Hydroxide 15 (ml/ Lidocaine HCl 15 ml) 0 ml PO ONETIME ONE Stop: 06/14/20 11:32 Last Admin: 06/14/20 12:31 Dose: 30 ml Documented by: Al Hydroxide/Mg Hydroxide 15 (ml/ Lidocaine HCl 15 ml) 0 ml PO ONETIME ONE Stop: 06/16/20 08:25 Last Admin: 06/16/20 10:06 Dose: 30 ml Documented by: Diltiazem HCl (Dilacor Xr) 240 mg PO DAILY [facility] Last Admin: 06/14/20 08:33 Dose: 240 mg Documented by: Diltiazem HCl (Cardizem Cd) 120 mg PO DAILY [facility] Last Admin: 06/15/20 08:35 Dose: 120 mg Documented by: Famotidine (Pepcid) 20 mg IVPUSH ONETIME ONE Stop: 06/15/20 15:09 Last Admin: 06/15/20 15:28 Dose: 20 mg Documented by: Ibuprofen (Motrin) 200 mg PO Q6H [facility] Last Admin: 06/14/20 12:34 Dose: 200 mg Documented by: Lactulose (Chronulac) 10 gm PO TID [facility] Last Admin: 06/14/20 08:30 Dose: 10 gm Documented by: Oxybutynin Chloride (Oxybutynin) 5 mg PO TID [facility] Last Admin: 06/15/20 17:06 Dose: Not Given Documented by: Oxycodone HCl (Oxycodone) 5 mg PO Q4H PRN PRN Reason: pain 4-6/10 Stop: 06/12/20 16:00 Last Admin: 06/12/20 11:18 Dose: 5 mg Documented by: Oxycodone HCl (Oxycodone) 10 mg PO Q4H PRN PRN Reason: pain 7-10/10 Stop: 06/12/20 16:00 Last Admin: 06/09/20 19:00 Dose: 10 mg Documented by: Simethicone (Simethicone) 80 mg PO QIDPCANDBED [facility] Last Admin: 06/15/20 12:55 Dose: 80 mg Documented by: Sodium Polystyrene Sulfonate (Kayexalate) 15 gm PO Q6H [facility] Last Admin: 06/15/20 16:33 Dose: Not Given Documented by: - Exam General: Alert, Oriented, Mild Distress (sitting at edge of bed initially) Lungs: Clear to Auscultation, Normal Respiratory Effort Cardiovascular: Regular Rate, Regular Rhythm GI/Abdominal Exam: Soft, Non-Tender, No Distention, Abnormal Bowel Sounds Extremities: Pedal Edema (trace edema), Pallor Sepsis Event Note - Evaluation Sepsis Screening Result: No Definite Risk - Focused Exam Vital Signs: Vital Signs Temp Pulse Resp BP Pulse Ox 06/16/20 07:00 98.1 F 80 18 163/76 H 96 - Problem List & Annotations (1) Hyperkalemia SNOMED Code(s): 06271744 Code(s): E87.5 - HYPERKALEMIA Status: Resolved Current Visit: Yes Annotation/Comment:: Resolved 5.2 last night, 4.6 this morning. (2) Nausea & vomiting SNOMED Code(s): 87551766 Code(s): R11.2 - NAUSEA WITH VOMITING, UNSPECIFIED Status: Acute Current Visit: Yes Qualifiers: Vomiting type: unspecified Annotation/Comment:: Describes as more heartburn, states GI cocktail has helped the most. Pepcid had no change. Ordered GI cocktail q4h as needed dyspepsia. (3) Chronic kidney disease (CKD), stage III (moderate) SNOMED Code(s): 972678578 Code(s): N18.30 - CHRONIC KIDNEY DISEASE, STAGE 3 UNSPECIFIED Status: Chronic Current Visit: Yes Annotation/Comment:: Cr 1.6 today. Sodium corrected. Slow IV fluids down, changed to clear diet until her heartburn is better controlled. (4) H/O total hip arthroplasty SNOMED Code(s): 930114362536, 128907829895 Code(s): Z96.649 - PRESENCE OF UNSPECIFIED ARTIFICIAL HIP JOINT Status: Acute Current Visit: Yes Qualifiers: Laterality: left Qualified Code(s): Z96.642 - Presence of left artificial hip joint (5) Anemia SNOMED Code(s): 989395008 Code(s): D64.9 - ANEMIA, UNSPECIFIED Status: Chronic Current Visit: Yes Qualifiers: Anemia type: iron deficiency (6) MDD (major depressive disorder) SNOMED Code(s): 346810656 Code(s): F32.9 - MAJOR DEPRESSIVE DISORDER, SINGLE EPISODE, UNSPECIFIED Status: Chronic Current Visit: Yes Qualifiers: Major depression recurrence: recurrent Active/Remission status: currently active Major depression episode severity: moderate Qualified Code(s): F33.1 - Major depressive disorder, recurrent, moderate (7) CAD (coronary artery disease) SNOMED Code(s): 00232013 Code(s): I25.10 - ATHSCL HEART DISEASE OF [place] CORONARY ARTERY W/O ANG PCTRS Status: Chronic Current Visit: Yes Qualifiers: Coronary Disease-Associated Artery/Lesion type: [place] artery [place] vs. transplanted heart: [place] heart Associated angina: with stable angina Qualified Code(s): I25.118 - Atherosclerotic heart disease of [place] coronary artery with other forms of angina pectoris (8) Constipation SNOMED Code(s): 76163005 Code(s): K59.00 - CONSTIPATION, UNSPECIFIED Status: Chronic Current V isit: Yes Qualifiers: Constipation type: unspecified constipation type Qualified Code(s): K59.00 - Constipation, unspecified (9) HTN (hypertension) SNOMED Code(s): 67859303 Code(s): I10 - ESSENTIAL (PRIMARY) HYPERTENSION Status: Chronic Current Visit: Yes Qualifiers: Hypertension type: essential hypertension Qualified Code(s): I10 - Essential (primary) hypertension (10) Osteoarthritis SNOMED Code(s): 468385390 Code(s): M19.90 - UNSPECIFIED OSTEOARTHRITIS, UNSPECIFIED SITE Status: Chronic Current Visit: Yes Qualifiers: Osteoarthritis location: multiple joints - Problem List Review Problem List Initiated/Reviewed/Updated: Yes - My Orders Last 24 Hours: My Active Orders 06/15/20 11:03 hydrOXYzine HCL [Vistaril] 50 mg IM Q6H PRN 06/15/20 15:48 Simethicone 80 mg PO QIDPCANDBED PRN 06/15/20 21:00 Oxybutynin 5 mg PO BID 06/16/20 Lunch Clear Liquid Diet [DIET] 06/16/20 10:42 Alum Hydroxide/Mag Hydroxide [Mag-Al Susp] 15 ml Lidocaine 2% [Xylocaine 2% Viscous] 15 ml PO Q4H 06/16/20 21:00 amLODIPine [Norvasc] 5 mg PO BEDTIME - Plan Plan:: 1. Hyperkalemia:Resolved. 2. Acute on CKD: Cr 1.6, LR at 75 ml/hr. 3. Bradycardia: Resolved, HR in 80s today. 4. HTN: Add amlodipine 5 mg at bedtime, 75% of Diltiazem should be out of her system by tonight. BP elevated today. 4. Nausea/vomiting: GI cocktail q4h as needed, Zofran & Vistaril as needed. Pantoprazole scheduled. 5. Left ESTEFANI: continue PT/OT, home MSContin bid, tylenol 500 mg q6h scheduled and Tramadol stop date today.
[2020-06-16] MEDS: Alum Hydroxide/Mag Hydroxide 15 ML, Lidocaine 2% 15 ML PO PRN ×2 (12:50)
--- NOTE | 2020-06-16 16:53 | CR ---
INDICATION: Epigastric pain. ABDOMEN SERIES WITH CHEST ONE VIEW: AP upright view of the chest was obtained 06/16/20 and compared with 05/18/18. The heart remains normal in size shape, the aorta is tortuous with calcification in the arch. Somewhat hyperaerated appearing lung is noted which may be on the basis of COPD but should be correlated clinically. The right costophrenic angle is blunted with some heavy markings in that area, possibly on the basis of relatively poor inspiration although minimal fibrosis and/or patchy minimal pneumonia and pleuritis is difficult to entirely exclude. No free air was noted under the hemidiaphragm leaves. Multiple air-fluid levels are noted in the right lower abdomen and upper pelvis, which may be on the basis of a localized paralytic ileus, early gastroenteritis, or nonspecific due to fluid ingestion, and should be correlated clinically. No gross distention of the bowel loops is seen, although the bowel loops - colon show greater distention than on the previous examination - this is a relatively incidental finding. There is noted a paucity of gas in the area of the rectum which could be on the basis of recent BM but should be correlated clinically. No definite nonvascular pathologic calcifications were identified. Aortic calcifications are noted. Interval placement of total hip arthroplasty is noted on the left. Clips in the lower pelvis most likely on the basis of previous inguinal herniorrhaphy. Correlate clinically. Mild dextroconvex scoliosis lower lumbar spine is noted. No definite organomegaly or mass lesions were identified otherwise. IMPRESSION: 1. No definite acute process in the chest although a degree of obstructive airway disease and even minimal pneumonia and pleuritis versus fibrosis at the right costophrenic angle cannot be excluded. 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 2. Air-fluid levels in the right lower abdomen - upper pelvis etiology indeterminate, followup may be warranted. Findings may be on the basis of localized paralytic ileus, gastroenteritis, etc. 3. Scoliosis. 4. Total hip arthroplasty on the left. [facility]
[2020-06-16] MEDS: Sucralfate 1 GM Tab PO SCH ×2 (17:44→21:24)
[2020-06-16] MEDS: atorvaSTATin 10 MG Tab PO SCH (21:11)
[2020-06-16] MEDS: amLODIPine 5 MG Tab PO SCH (21:28)
[2020-06-17] MEDS: Acetaminophen 500 MG Tab PO SCH ×4 (01:06→18:13)
[2020-06-17] MEDS: Alum Hydroxide/Mag Hydroxide 15 ML, Lidocaine 2% 15 ML PO PRN ×2 (02:15)
[2020-06-17] MEDS: Sucralfate 1 GM Tab PO SCH ×4 (07:06→20:15)
[2020-06-17] MEDS: Lactated Ringers 1,000 ML IV SCH (08:29)
[2020-06-17] MEDS: Ferrous Sulfate 325 MG Tab PO SCH (08:35)
[2020-06-17] MEDS: Docusate Sodium 100 MG Cap PO SCH (08:35)
[2020-06-17] MEDS: Venlafaxine 150 MG Cap.ER PO SCH (08:35)
[2020-06-17] MEDS: Polyethylene Glycol 3350 Powder 17 GM Packet PO SCH (08:36)
[2020-06-17] MEDS: Aspirin 81 MG Tab.EC PO SCH ×2 (08:36→20:16)
[2020-06-17] MEDS: Oxybutynin 5 MG Tab PO SCH ×2 (08:37→20:19)
[2020-06-17] MEDS: Ascorbic Acid 500 MG Tab PO SCH (08:37)
[2020-06-17] MEDS: Formoterol/Mometasone 200-5 MCG 8.8 GM Inhaler IH SCH ×2 (08:39→20:15)
[2020-06-17] MEDS ORDERED: Metoclopramide 10 MG/2 ML SDV IVPUSH PRN (09:02)
[2020-06-17] MEDS ORDERED: Sodium Chloride 0.9% 250 ML IV SCH (09:15)
[2020-06-17] MEDS: Albuterol 0.083% 2.5 MG/3 ML Neb Soln NEB PRN (09:19)
[2020-06-17] MEDS: Morphine 15 MG Tab.ER PO SCH ×2 (09:20→20:17)
[2020-06-17] MEDS: Pantoprazole 40 MG Tab.CR PO SCH ×2 (09:21→20:18)
--- NOTE | 2020-06-17 10:06 | PCM.PN ---
- General Info Date of Service: 06/17/20 Subjective Update: Macey states she short of breath today, having some wheezing. The Maalox with lidocaine is helping her stomach, she is not dry heaving this morning. She had stated yesterday her stomach is a chronic issue, had ulcers in the past but not this bad. Had EGD [address] Jasso with gastritis. No bloody stools per staff. Abdomen with chest x-ray showed some atelectasis and ileus on right. - Patient Data Vitals - Most Recent: Last Vital Signs Temp 97.4 F 06/17/20 08:00 Pulse 81 06/17/20 08:00 Resp 16 06/17/20 08:00 BP 192/81 H 06/17/20 08:00 Pulse Ox 96 06/17/20 08:00 Orthostatic Blood Pressure [ 117/52 Standing] Orthostatic Blood Pressure [ 165/49 Sitting] Weight - Most Recent: 164 lb I&O - Last 24 Hours: Intake & Output 06/16/20 06/17/20 06/17/20 22:59 06:59 14:59 Intake Total 1250 640 Balance 1250 640 Lab Results Last 24 Hours: Laboratory Results - last 24 hr 06/17/20 06/17/20 Range/Units 08:15 08:15 Hgb 7.6 L (11.4-15.5) g/dL Hct 23.7 L (34.2-48.2) % Sodium 141 (135-145) mmol/L Potassium 4.3 (3.5-5.3) mmol/L Chloride 105 (100-110) mmol/L Carbon Dioxide 28 (21-32) mmol/L BUN 19 H (7-18) mg/dL Creatinine 1.5 H (0.55-1.02) mg/dL Est Cr Clr Drug Dosing 23.66 mL/min Estimated GFR (MDRD) 33 L (>60) BUN/Creatinine Ratio 12.7 (9-20) Glucose 86 (80-116) mg/dL Calcium 8.2 L (8.6-10.2) mg/dL Med Orders - Current: Current Medications Acetaminophen (Tylenol Extra Strength) 500 mg PO Q6H [facility] Last Admin: 06/17/20 06:26 Dose: 500 mg Documented by: Albuterol (Ventolin Hfa) 0 gm INH Q4H PRN PRN Reason: Shortness of Breath Albuterol (Proventil Neb Soln) 2.5 mg NEB QID PRN PRN Reason: Shortness of Breath Last Admin: 06/17/20 09:19 Dose: 2.5 mg Documented by: Amlodipine Besylate (Norvasc) 5 mg PO BEDTIME [facility] Last Admin: 06/16/20 21:28 Dose: 5 mg Documented by: Ascorbic Acid (Vitamin C) 500 mg PO DAILY [facility] Last Admin: 06/17/20 08:37 Dose: 500 mg Documented by: Aspirin (Halfprin) 81 mg PO BID [facility] Stop: 07/06/20 23:59 Last Admin: 06/17/20 08:36 Dose: 81 mg Documented by: Aspirin (Halfprin) 81 mg PO DAILY [facility] Atorvastatin Calcium (Lipitor) 10 mg PO BEDTIME [facility] Last Admin: 06/16/20 21:11 Dose: 10 mg Documented by: Al Hydroxide/Mg Hydroxide 15 (ml/ Lidocaine HCl 15 ml) 0 ml PO Q3H PRN PRN Reason: Dyspepsia Last Admin: 06/16/20 12:50 Dose: 15 ml Documented by: Docusate Sodium (Colace) 100 mg PO DAILY [facility] Last Admin: 06/17/20 08:35 Dose: 100 mg Documented by: Ferrous Sulfate (Ferrous Sulfate) 325 mg PO DAILY [facility] Last Admin: 06/17/20 08:35 Dose: 325 mg Documented by: Hydroxyzine HCl (Vistaril) 50 mg IM Q6H PRN PRN Reason: Nausea/Vomiting Last Admin: 06/15/20 22:01 Dose: 50 mg Documented by: Sodium Chloride (Normal Saline) 250 mls @ 100 mls/hr IV ASDIRECTED [facility] Metoclopramide HCl (Reglan) 5 mg IVPUSH Q6H PRN PRN Reason: Nausea/Vomiting Mometasone Furoate/Formoterol Fumar (Dulera 200-5 Mcg) 2 puff IH BID [facility] Last Admin: 06/17/20 08:39 Dose: 2 puff Documented by: Morphine Sulfate (Ms Contin) 15 mg PO BID [facility] Last Admin: 06/17/20 09:20 Dose: 15 mg Documented by: Nitroglycerin (Nitrostat) 0.4 mg SL Q5M PRN PRN Reason: Chest Pain Ondansetron HCl (Zofran Odt) 4 mg PO Q4H PRN PRN Reason: Nausea Last Admin: 06/16/20 05:59 Dose: 4 mg Documented by: Oxybutynin Chloride (Oxybutynin) 5 mg PO BID [facility] Last Admin: 06/17/20 08:37 Dose: 5 mg Documented by: Pantoprazole Sodium (Protonix) 40 mg PO BID [facility] Last Admin: 06/17/20 09:21 Dose: 40 mg Documented by: Polyethylene Glycol (Miralax) 17 gm PO DAILY [facility] Last Admin: 06/17/20 08:36 Dose: 17 gm Documented by: Senna/Docusate Sodium (Senna Plus) 1 tab PO BID [facility] Last Admin: 06/17/20 08:37 Dose: 1 tab Documented by: Simethicone (Simethicone) 80 mg PO QIDPCANDBED PRN PRN Reason: Gas Sucralfate (Carafate) 1 gm PO QIDACANDBED [facility] Last Admin: 06/17/20 07:06 Dose: 1 gm Documented by: Venlafaxine HCl (Effexor Xr) 150 mg PO DAILY [facility] Last Admin: 06/17/20 08:35 Dose: 150 mg Documented by: Discontinued Medications Acetaminophen (Tylenol) 650 mg PO Q4H PRN PRN Reason: mild pain Last Admin: 06/10/20 06:54 Dose: 650 mg Documented by: Al Hydroxide/Mg Hydroxide (Mag-Al Susp) 30 ml PO Q4H PRN PRN Reason: Heartburn Last Admin: 06/13/20 12:15 Dose: 30 ml Documented by: Al Hydroxide/Mg Hydroxide 15 (ml/ Lidocaine HCl 15 ml) 0 ml PO ONETIME ONE Stop: 06/14/20 11:32 Last Admin: 06/14/20 12:31 Dose: 30 ml Documented by: Al Hydroxide/Mg Hydroxide 15 (ml/ Lidocaine HCl 15 ml) 0 ml PO ONETIME ONE Stop: 06/16/20 08:25 Last Admin: 06/16/20 10:06 Dose: 30 ml Documented by: Al Hydroxide/Mg Hydroxide 15 (ml/ Lidocaine HCl 15 ml) 0 ml PO Q4H PRN PRN Reason: Dyspepsia Diltiazem HCl (Dilacor Xr) 240 mg PO DAILY [facility] Last Admin: 06/14/20 08:33 Dose: 240 mg Documented by: Diltiazem HCl (Cardizem Cd) 120 mg PO DAILY [facility] Last Admin: 06/15/20 08:35 Dose: 120 mg Documented by: Famotidine (Pepcid) 20 mg IVPUSH ONETIME ONE Stop: 06/15/20 15:09 Last Admin: 06/15/20 15:28 Dose: 20 mg Documented by: Lactated Ringer's (Ringers, Lactated) 1,000 mls @ 50 mls/hr IV ASDIRECTED [facility] Last Admin: 06/17/20 08:29 Dose: 75 mls/hr Documented by: Ibuprofen (Motrin) 200 mg PO Q6H [facility] Last Admin: 06/14/20 12:34 Dose: 200 mg Documented by: Lactulose (Chronulac) 10 gm PO TID [facility] Last Admin: 06/14/20 08:30 Dose: 10 gm Documented by: Oxybutynin Chloride (Oxybutynin) 5 mg PO TID [facility] Last Admin: 06/15/20 17:06 Dose: Not Given Documented by: Oxycodone HCl (Oxycodone) 5 mg PO Q4H PRN PRN Reason: pain 4-6/10 Stop: 06/12/20 16:00 Last Admin: 06/12/20 11:18 Dose: 5 mg Documented by: Oxycodone HCl (Oxycodone) 10 mg PO Q4H PRN PRN Reason: pain 7-10/10 Stop: 06/12/20 16:00 Last Admin: 06/09/20 19:00 Dose: 10 mg Documented by: Pantoprazole Sodium (Protonix) 40 mg PO DAILY@0600 [facility] Last Admin: 06/16/20 05:59 Dose: 40 mg Documented by: Simethicone (Simethicone) 80 mg PO QIDPCANDBED [facility] Last Admin: 06/15/20 12:55 Dose: 80 mg Documented by: Sodium Polystyrene Sulfonate (Kayexalate) 15 gm PO Q6H [facility] Last Admin: 06/15/20 16:33 Dose: Not Given Documented by: Tramadol HCl (Ultram) 50 mg PO Q6H PRN PRN Reason: Pain (severe 7-10) Stop: 06/16/20 23:59 Last Admin: 06/13/20 17:01 Dose: 50 mg Documented by: - Exam General: Alert, Oriented, Cooperative, Mild Distress Lungs: Clear to Auscultation, Normal Respiratory Effort, Wheezing. No: Crackles Cardiovascular: Regular Rate, Regular Rhythm GI/Abdominal Exam: Soft, Non-Tender, No Distention, Abnormal Bowel Sounds (hypoactive). No: Guarding, Rigid, Rebound Extremities: Pallor Sepsis Event Note - Evaluation Sepsis Screening Result: No Definite Risk - Focused Exam Vital Signs: Vital Signs Temp Pulse Resp BP Pulse Ox 06/17/20 08:00 97.4 F 81 16 192/81 H 96 - Problem List & Annotations (1) Nausea & vomiting SNOMED Code(s): 80785347 Code(s): R11.2 - NAUSEA WITH VOMITING, UNSPECIFIED Status: Acute Current Visit: Yes Qualifiers: Vomiting type: unspecified Annotation/Comment:: Gastritis chronic, last EGD was 2 years ago. No perforation seen on x-ray but some ileus. Add reglan 5 mg as needed nausea/vomiting. Clear liquids. (2) Chronic kidney disease (CKD), stage III (moderate) SNOMED Code(s): 150244327 Code(s): N18.30 - CHRONIC KIDNEY DISEASE, STAGE 3 UNSPECIFIED Status: Chronic Current Visit: Yes Annotation/Comment:: Cr 1.5 today. Saline lock IV fluids. (3) H/O total hip arthroplasty SNOMED Code(s): 544607800935, 020532843183 Code(s): Z96.649 - PRESENCE OF UNSPECIFIED ARTIFICIAL HIP JOINT Status: Acute Current Visit: Yes Qualifiers: Laterality: left Qualified Code(s): Z96.642 - Presence of left artificial h ip joint (4) Anemia SNOMED Code(s): 804790123 Code(s): D64.9 - ANEMIA, UNSPECIFIED Status: Chronic Current Visit: Yes Qualifiers: Anemia type: iron deficiency Annotation/Comment:: Hgb down to 7.6 today, symptomatic with shortness of breath. Transfuse 1 unit of PRBCs. repeat hgb tomorrow. (5) MDD (major depressive disorder) SNOMED Code(s): 430747073 Code(s): F32.9 - MAJOR DEPRESSIVE DISORDER, SINGLE EPISODE, UNSPECIFIED Status: Chronic Current Visit: Yes Qualifiers: Major depression recurrence: recurrent Active/Remission status: currently active Major depression episode severity: moderate Qualified Code(s): F33.1 - Major depressive disorder, recurrent, moderate (6) CAD (coronary artery disease) SNOMED Code(s): 93288987 Code(s): I25.10 - ATHSCL HEART DISEASE OF [place] CORONARY ARTERY W/O ANG PCTRS Status: Chronic Current Visit: Yes Qualifiers: Coronary Disease-Associated Artery/Lesion type: [place] artery [place] vs. transplanted heart: [place] heart Associated angina: with stable angina Qualified Code(s): I25.118 - Atherosclerotic heart disease of [place] coronary artery with other forms of angina pectoris (7) Constipation SNOMED Code(s): 79588206 Code(s): K59.00 - CONSTIPATION, UNSPECIFIED Status: Chronic Current Vi sit: Yes Qualifiers: Constipation type: unspecified constipation type Qualified Code(s): K59.00 - Constipation, unspecified (8) HTN (hypertension) SNOMED Code(s): 32025199 Code(s): I10 - ESSENTIAL (PRIMARY) HYPERTENSION Status: Chronic Current Visit: Yes Qualifiers: Hypertension type: essential hypertension Qualified Code(s): I10 - Essential (primary) hypertension (9) Osteoarthritis SNOMED Code(s): 492057768 Code(s): M19.90 - UNSPECIFIED OSTEOARTHRITIS, UNSPECIFIED SITE Status: Chronic Current Visit: Yes Qualifiers: Osteoarthritis location: multiple joints (10) Gastritis SNOMED Code(s): 1944924 Code(s): K29.70 - GASTRITIS, UNSPECIFIED, WITHOUT BLEEDING Status: Chronic Current Visit: Yes Qualifiers: Chronicity: chronic Gastritis bleeding: presence of bleeding unspecified - Problem List Review Problem List Initiated/Reviewed/Updated: Yes - My Orders Last 24 Hours: My Active Orders 06/16/20 Lunch Clear Liquid Diet [DIET] 06/16/20 13:00 Alum Hydroxide/Mag Hydroxide [Mag-Al Susp] 15 ml Lidocaine 2% [Xylocaine 2% Viscous] 15 ml PO Q3H 06/16/20 17:30 Sucralfate [Carafate] 1 gm PO QIDACANDBED 06/16/20 21:00 Pantoprazole [ProTONIX] 40 mg PO BID amLODIPine [Norvasc] 5 mg PO BEDTIME 06/17/20 09:02 Metoclopramide [Reglan] 5 mg IVPUSH Q6H PRN 06/17/20 09:03 Incentive Spirometry [RT Incentive Spirometry] [RC] Q1HWA 06/17/20 09:05 Transfuse PRBC [Transfuse Red Blood Cells] [COMM] Routine 06/17/20 09:07 OCCULT BLOOD SCREEN [OP] Routine 06/17/20 09:15 Sodium Chloride 0.9% [Normal Saline] 250 ml IV ASDIRECTED 06/17/20 09:21 RED BLOOD CELLS LP [BBK] Routine TYPE AND SCREEN [BBK] Routine 06/18/20 06:00 BASIC METABOLIC PANEL,BMP [CHEM] Routine CBC WITH AUTO DIFF [HEME] Routine - Plan Plan:: 1. Acute on CKD: Cr 1.5, saline lock. 2. Nausea/vomiting: GI cocktail q3h as needed, Zofran, & Reglan as needed. Pantoprazole scheduled bid with Carafate slurry qid & AC. 3. HTN: Amlodipine 5 mg at bedtime. 4. Anemia: transfuse 1 unit of PRBCs repeat hgb tomorrow. Occult stool ordered. 5. Left ESTEFANI: continue PT/OT, home MSContin bid, tylenol 500 mg q6h scheduled.
[2020-06-17] MEDS: atorvaSTATin 10 MG Tab PO SCH (20:17)
[2020-06-17] MEDS: Ondansetron 4 MG Tab.DIS PO PRN (20:19)
[2020-06-17] MEDS: amLODIPine 5 MG Tab PO SCH (20:20)
[2020-06-18] MEDS: Acetaminophen 500 MG Tab PO SCH ×4 (00:39→17:31)
[2020-06-18] MEDS: Sucralfate 1 GM Tab PO SCH ×4 (06:47→20:30)
[2020-06-18] MEDS: Docusate Sodium 100 MG Cap PO SCH (08:07)
[2020-06-18] MEDS: Formoterol/Mometasone 200-5 MCG 8.8 GM Inhaler IH SCH ×2 (08:07→20:30)
[2020-06-18] MEDS: Venlafaxine 150 MG Cap.ER PO SCH (08:07)
[2020-06-18] MEDS: Aspirin 81 MG Tab.EC PO SCH ×2 (08:08→20:31)
[2020-06-18] MEDS: Ferrous Sulfate 325 MG Tab PO SCH (08:08)
[2020-06-18] MEDS: Oxybutynin 5 MG Tab PO SCH ×2 (08:08→20:32)
[2020-06-18] MEDS: Pantoprazole 40 MG Tab.CR PO SCH ×2 (08:08→20:32)
[2020-06-18] MEDS: Polyethylene Glycol 3350 Powder 17 GM Packet PO SCH (08:09)
[2020-06-18] MEDS: Ascorbic Acid 500 MG Tab PO SCH (08:09)
[2020-06-18] MEDS: Morphine 15 MG Tab.ER PO SCH ×2 (08:10→20:37)
[2020-06-18] MEDS ORDERED: Metoclopramide 5 MG Tab PO PRN (08:48)
[2020-06-18] MEDS: atorvaSTATin 10 MG Tab PO SCH (20:31)
[2020-06-18] MEDS: amLODIPine 5 MG Tab PO SCH (20:31)
[2020-06-18] MEDS: Ondansetron 4 MG Tab.DIS PO PRN (20:43)
[2020-06-19] MEDS: Acetaminophen 500 MG Tab PO SCH ×5 (00:22→23:05)
[2020-06-19] MEDS: Sucralfate 1 GM Tab PO SCH ×4 (06:29→20:05)
[2020-06-19] MEDS: Formoterol/Mometasone 200-5 MCG 8.8 GM Inhaler IH SCH ×2 (08:46→20:05)
[2020-06-19] MEDS: Docusate Sodium 100 MG Cap PO SCH (08:46)
[2020-06-19] MEDS: Morphine 15 MG Tab.ER PO SCH ×2 (08:48→20:08)
[2020-06-19] MEDS: Aspirin 81 MG Tab.EC PO SCH ×2 (08:48→20:06)
[2020-06-19] MEDS: Ferrous Sulfate 325 MG Tab PO SCH (08:48)
[2020-06-19] MEDS: Venlafaxine 150 MG Cap.ER PO SCH (08:48)
[2020-06-19] MEDS: Ascorbic Acid 500 MG Tab PO SCH (08:49)
[2020-06-19] MEDS: Pantoprazole 40 MG Tab.CR PO SCH ×2 (08:49→20:10)
[2020-06-19] MEDS: Oxybutynin 5 MG Tab PO SCH ×2 (08:49→20:10)
[2020-06-19] MEDS: Metoprolol Tartrate 25 MG Tab PO SCH ×2 (10:13→20:07)
[2020-06-19] MEDS: Polyethylene Glycol 3350 Powder 17 GM Packet PO SCH (10:14)
[2020-06-19] MEDS: atorvaSTATin 10 MG Tab PO SCH (20:06)
[2020-06-19] MEDS: amLODIPine 5 MG Tab PO SCH (20:09)
[2020-06-20] MEDS: Acetaminophen 500 MG Tab PO SCH ×3 (06:31→18:09)
[2020-06-20] MEDS: Sucralfate 1 GM Tab PO SCH ×4 (06:31→20:29)
[2020-06-20] MEDS: Oxybutynin 5 MG Tab PO SCH ×2 (08:47→20:30)
[2020-06-20] MEDS: Ascorbic Acid 500 MG Tab PO SCH (08:47)
[2020-06-20] MEDS: Docusate Sodium 100 MG Cap PO SCH (08:47)
[2020-06-20] MEDS: Formoterol/Mometasone 200-5 MCG 8.8 GM Inhaler IH SCH ×2 (08:48→20:29)
[2020-06-20] MEDS: Ferrous Sulfate 325 MG Tab PO SCH (08:48)
[2020-06-20] MEDS: Venlafaxine 150 MG Cap.ER PO SCH (08:48)
[2020-06-20] MEDS: Aspirin 81 MG Tab.EC PO SCH ×2 (08:49→20:29)
[2020-06-20] MEDS: Pantoprazole 40 MG Tab.CR PO SCH ×2 (08:49→20:30)
[2020-06-20] MEDS: Metoprolol Tartrate 25 MG Tab PO SCH ×2 (08:52→20:29)
[2020-06-20] MEDS: Polyethylene Glycol 3350 Powder 17 GM Packet PO SCH (08:52)
[2020-06-20] MEDS: Morphine 15 MG Tab.ER PO SCH ×2 (08:52→20:30)
[2020-06-20] MEDS: atorvaSTATin 10 MG Tab PO SCH (20:29)
[2020-06-20] MEDS: amLODIPine 10 MG Tab PO SCH (20:30)
[2020-06-21] MEDS: Acetaminophen 500 MG Tab PO SCH ×4 (00:10→17:51)
[2020-06-21] MEDS: Sucralfate 1 GM Tab PO SCH ×4 (06:40→20:57)
[2020-06-21] MEDS: Venlafaxine 150 MG Cap.ER PO SCH (08:05)
[2020-06-21] MEDS: Ferrous Sulfate 325 MG Tab PO SCH (08:05)
[2020-06-21] MEDS: Ascorbic Acid 500 MG Tab PO SCH (08:05)
[2020-06-21] MEDS: Aspirin 81 MG Tab.EC PO SCH ×2 (08:05→20:57)
[2020-06-21] MEDS: Oxybutynin 5 MG Tab PO SCH ×2 (08:05→20:58)
[2020-06-21] MEDS: Formoterol/Mometasone 200-5 MCG 8.8 GM Inhaler IH SCH ×2 (08:05→20:57)
[2020-06-21] MEDS: Docusate Sodium 100 MG Cap PO SCH (08:06)
[2020-06-21] MEDS: Metoprolol Tartrate 25 MG Tab PO SCH ×2 (08:07→20:57)
[2020-06-21] MEDS: Pantoprazole 40 MG Tab.CR PO SCH ×2 (08:08→20:58)
[2020-06-21] MEDS: Polyethylene Glycol 3350 Powder 17 GM Packet PO SCH (08:08)
[2020-06-21] MEDS: Morphine 15 MG Tab.ER PO SCH ×2 (08:11→20:58)
[2020-06-21] MEDS ORDERED: Isosorbide Mononitrate 30 MG Tab.ER PO SCH (09:00)
[2020-06-21] MEDS: atorvaSTATin 10 MG Tab PO SCH (20:57)
[2020-06-21] MEDS: amLODIPine 10 MG Tab PO SCH (20:58)
[2020-06-22] MEDS: Acetaminophen 500 MG Tab PO SCH ×2 (00:18→07:00)
[2020-06-22] MEDS: Sucralfate 1 GM Tab PO SCH (07:00)
[2020-06-22] MEDS: Formoterol/Mometasone 200-5 MCG 8.8 GM Inhaler IH SCH (08:47)
[2020-06-22] MEDS: Docusate Sodium 100 MG Cap PO SCH (08:47)
[2020-06-22] MEDS: Venlafaxine 150 MG Cap.ER PO SCH (08:48)
[2020-06-22] MEDS: Ferrous Sulfate 325 MG Tab PO SCH (08:48)
[2020-06-22] MEDS: Aspirin 81 MG Tab.EC PO SCH (08:49)
[2020-06-22] MEDS: Morphine 15 MG Tab.ER PO SCH (08:49)
[2020-06-22] MEDS: Oxybutynin 5 MG Tab PO SCH (08:50)
[2020-06-22] MEDS: Metoprolol Tartrate 25 MG Tab PO SCH (08:50)
[2020-06-22] MEDS: Polyethylene Glycol 3350 Powder 17 GM Packet PO SCH (08:51)
[2020-06-22] MEDS: Pantoprazole 40 MG Tab.CR PO SCH (08:51)
[2020-06-22] MEDS: Ascorbic Acid 500 MG Tab PO SCH (08:52)
[2020-06-22] MEDS ORDERED: Isosorbide Mononitrate 30 MG Tab.ER PO SCH (09:00)
--- NOTE | 2020-06-22 10:53 | PCM.DCSUM1 ---
Discharge Summary - Hospital Course HPI Initial Comments: Macey is a 80 yo female who had ESTEFANI( left) last week 06/06. She is here for rehab. She complains of being tired, but her hip pain is much improved, and relived by Tylenol. She had post anemia( hgb 7.9) on discharge. Her past medical history is extensive, with HTN, CAD, COPD, chronic chest pain, anxiety, Constipation, CKD Stage III, gastritis. She had stress test prior to surgery that was negative. She had complete heart workup done after surgery to due persistent chest pain which was negative. She had been started on Lactulose in [place] for constipation, also had Losartan & Spironolactone discontinued due to hyperkalemia on admission to [place]. Diagnosis: Stroke: No - Discharge Data Discharge Date: 06/22/20 ([facility]) Discharge Disposition: Home, W Home Health Agency 06 Condition: Stable - Referral to Home Health Date of Face to Face Encounter: 06/22/20 Reason for Homebound Status: Recent hip replacement Primary Care Physician: Walter Chapa MD Skilled Need: PT/OT, nursing for assessment, medication managment, teaching of medications & disease, blood pressure monitoring. - Discharge Diagnosis/Problem(s) (1) Chronic kidney disease (CKD), stage III (moderate) SNOMED Code(s): 858769604 ICD Code: N18.30 - CHRONIC KIDNEY DISEASE, STAGE 3 UNSPECIFIED Status: Chronic Current Visit: Yes Problem Details: Cr 1.3 06/21 (2) H/O total hip arthroplasty SNOMED Code(s): 249125501944, 520520666045 ICD Code: Z96.649 - PRESENCE OF UNSPECIFIED ARTIFICIAL HIP JOINT Status: Acute Current Visit: Yes Onset Date: ~06/06/20 Qualifiers: Laterality: left Qualified Code(s): Z96.642 - Presence of left artificial hip joint (3) Gastritis SNOMED Code(s): 7430111 ICD Code: K29.70 - GASTRITIS, UNSPECIFIED, WITHOUT BLEEDING Status: Chronic Current Visit: Yes Problem Details: Protonix 40 mg bid, Carafate 1 gm po qidac. Recheck in 4-[address] Chapa on weaning down. Qualifiers: Chronicity: chronic Gastritis bleeding: presence of bleeding unspecified (4) Anemia SNOMED Code(s): 425653881 ICD Code: D64.9 - ANEMIA, UNSPECIFIED Status: Chronic Current Visit: Yes Problem Details: Hgb 9.8 06/21, received 1 unit PRBCs on 06/17, continues to improve. Recheck with PCP on follow up. Qualifiers: Anemia type: iron deficiency (5) MDD (major depressive disorder) SNOMED Code(s): 772253021 ICD Code: F32.9 - MAJOR DEPRESSIVE DISORDER, SINGLE EPISODE, UNSPECIFIED Status: Chronic Current Visit: Yes Qualifiers: Major depression recurrence: recurrent Active/Remission status: currently active Major depression episode severity: moderate Qualified Code(s): F33.1 - Major depressive disorder, recurrent, moderate (6) CAD (coronary artery disease) SNOMED Code(s): 41691821 ICD Code: I25.10 - ATHSCL HEART DISEASE OF [place] CORONARY ARTERY W/O ANG PCTRS Status: Chronic Current Visit: Yes Qualifiers: Coronary Disease-Associated Artery/Lesion type: [place] artery [place] vs. transplanted heart: [place] heart Associated angina: with stable angina Qualified Code(s): I25.118 - Atherosclerotic heart disease of [place] coronary artery with other forms of angina pectoris (7) Constipation SNOMED Code(s): 44116124 ICD Code: K59.00 - CONSTIPATION, UNSPECIFIED Status: Chronic Current Visit: Yes Qualifiers: Constipation type: unspecified constipation type Qualified Code(s): K59.00 - Constipation, unspecified (8) HTN (hypertension) SNOMED Code(s): 28666823 ICD Code: I10 - ESSENTIAL (PRIMARY) HYPERTENSION Status: Chronic Current Visit: Yes Problem Details: Elevated, had to discontinue Diltiazem for marked bradycardia in 40s. Losartan & Spironolactone were discontinued in [place] due to hyperkalemia. Restarted Metoprolol 12.5 mg bid, amlodpine 10 mg bedtime, Imdur 30 mg daily, she feels well, no dizziness or lightheadedness when getting up with therapy, no headaches or blurred vision. Will have Home health continue to monitor and close follow up [facility]. Qualifiers: Hypertension type: essential hypertension Qualified Code(s): I10 - Essential (primary) hypertension (9) Osteoarthritis SNOMED Code(s): 112314276 ICD Code: M19.90 - UNSPECIFIED OSTEOARTHRITIS, UNSPECIFIED SITE Status: Chr onic Current Visit: Yes Qualifiers: Osteoarthritis location: multiple joints (10) Nausea & vomiting SNOMED Code(s): 33601589 ICD Code: R11.2 - NAUSEA WITH VOMITING, UNSPECIFIED Status: Resolved Current Visit: Yes Problem Details: Gastritis chronic, last EGD was 2 years ago. Resolved. Qualifiers: Vomiting type: unspecified - Patient Summary/Data Consults: Consultations 06/09/20 14:47 OT Evaluation and Treatment [CONS] Routine Please Evaluate and Treat. OT Reason for Consult: ADL's This query below is only for informational purposes and is not editable. PT Evaluation and Treatment [CONS] Routine Please Evaluate and Treat. PT Reason for Consult: Ambulation This query below is only for informational purposes and is not editable. Hospital Course: Macey admitted on 06/09 for rehab for Left total hip replacement, developed more nausea & vomiting on 06/13, oxycodone was discontinued and switched to Tramadol. During OT session on 06/14 had retching and central chest pain, troponin was negative, EKG showed junctional rhythm, bradycardia. Her Diltiazem was decreased to 120 mg daily 06/13 then discontinued, her pulse came up 80s on 06/15. Still was having nausea and dry heaving to where she was refusing meals and doing therapy. Lactulose was discontinued as she stated she had stomach pain every time she got it. GI cocktail was only thing that helped with pain, so this was ordered every 3 hours as needed, stated her pain was same as it was in [place] and prior to her surgery, like when she had an ulcer. Her last EGD with Dr Jasso was 2 years ago and showed gastritis, her pantoprazole was increased to 40 mg bid, added Carafate 1 gm tablet in 15-30 ml water slurried qidac&bedtime, her symptoms resolved and was able to advance her diet on Sunday 06/17. Her potassium was recheck on 06/10 which was normal range. Her labs on 06/14 when she had chest pain showed elevated potassium of 5.9, Creatinine 2.2, she also had orthostatic hypotension drop of 50 points with PT/OT, started on IV fluids, saline locked on 06/17. Oxybutynin was decreased to bid as can also cause some orthostatic hypotension. Milk of magnesia was discontinued, albuterol nebs ordered changed to also cover for hyperkalemia. Repeat potassium was recheck at 6.2, given Kayexalate had 2 good bowel movements, repeat potassium was 5.2, continued to trend down, was 4.2 on 06/21. Creatinine trended down and was 1.3 on 06/21. Amlodipine was started for her blood pressure evening of as over 75% of Diltiazem would be out of her system, this was titrated up to 10 mg, Metoprolol was restarted at previous home dose of 25 mg bid, she was bradycardiac with this so decreased to 12.5 mg bid. Added Imdur 15 mg daily, no significant change with pressures so increased to 30 mg daily. She is asymptomatic with her blood pressures. Will have close follow up with Dr Chapa as outpatient. Her Hgb on 06/17 was 7.6, was having shortness of breath so transfused 1 unit of PRBCs, Hgb came up to 9.1 and 9.8 on 06/21. Patient was able to resume PT/OT on Monday 06/18, has progressed well, discharge [facility] in the care of her son, Neo. - Patient Instructions Diet: Usual Diet as Tolerated Activity: As Tolerated Showering/Bathing: May Shower Notify Provider of: Fever, Increased Pain, Nausea and/or Vomiting Other/Special Instructions: Follow up with Dr Chapa in 3-4 days for recheck of your blood pressures and your hemoglobin(anemia). [facility] will [facility] providing PT/OT/nursing services on your discharge. - Discharge Plan *PRESCRIPTION DRUG MONITORING PROGRAM REVIEWED*: Yes *COPY OF PRESCRIPTION DRUG MONITORING REPORT IN PATIENT EDUARD: Not Applicable Prescriptions/Med Rec: amLODIPine Besylate [Amlodipine Besylate] 10 mg PO BEDTIME 30 Days #30 tablet Isosorbide Mononitrate [Imdur] 30 mg PO DAILY 30 Days #30 tab.er Pantoprazole [ProTONIX] 40 mg PO BID 30 Days #60 tab.cr Sucralfate 1 gm PO QIDACANDBED 30 Days #120 tablet Home Medications: Home Meds atorvaSTATin [Lipitor] 10 mg PO BEDTIME 05/27/18 [History] Acetaminophen [Tylenol] 650 mg PO Q4H PRN 06/09/20 [History] Albuterol Sulfate 3 ml IH QID PRN 06/09/20 [History] Albuterol [Ventolin HFA] 2 puff IH Q4H PRN 06/09/20 [History] Aspirin [Halfprin] 81 mg PO BID 06/09/20 [History] Docusate Sodium 100 mg PO DAILY 06/09/20 [History] Docusate Sodium/Sennosides [Senna Plus] 1 tab PO BID 06/09/20 [History] Ferrous Fumarate/Vitamin C [Vitron-C] 1 tab PO DAILY 06/09/20 [History] Fluticasone Propion/Salmeterol [Advair 250-50 Diskus] 1 puff IH BID 06/09/20 [History] Morphine [MS Contin] 15 mg PO BID 06/09/20 [History] Ondansetron [Zofran ODT] 4 mg PO Q4H PRN 06/09/20 [History] Venlafaxine [Effexor XR] 150 mg PO DAILY 06/09/20 [History] polyethylene glycoL 3350 [MiraLAX] 17 gm PO DAILY 06/09/20 [History] Alum Hydroxide/Mag Hydroxide [Mag-Al] 15 ml PO Q3H PRN cup 06/22/20 [Rx] Isosorbide Mononitrate [Imdur] 30 mg PO DAILY 30 Days #30 tab.er 06/22/20 [Rx] Metoprolol Tartrate 12.5 mg PO BID 30 Days #30 tab 06/22/20 [Rx] Oxybutynin 5 mg PO BID 30 Days #60 tab 06/22/20 [Rx] Pantoprazole [ProTONIX] 40 mg PO BID 30 Days #60 tab.cr 06/22/20 [Rx] Sucralfate 1 gm PO QIDACANDBED 30 Days #120 tablet 06/22/20 [Rx] amLODIPine Besylate [Amlodipine Besylate] 10 mg PO BEDTIME 30 Days #30 tablet 06/22/20 [Rx] Oxygen Therapy Mode: Room Air Patient Handouts: Sucralfate tablets, Pantoprazole tablets, Fall Prevention in Hospitals, Adult, Venous Thromboembolism Prevention Referrals: Walter Chapa MD [Primary Care Provider] - - Discharge Summary/Plan Comment DC Time >30 min.: Yes - General Info Date of Service: 06/22/20 Subjective Update: Macey feeling well today, no chest pain, no stomach pain, no nausea or vomiting. No lightheadedness or dizziness with activity. No headaches or change in vision. Functional Status: Reports: Pain Controlled, Tolerating Diet, Ambulating, Urinating. Denies: New Symptoms - Patient Data Vitals - Most Recent: Last Vital Signs Temp 98.1 F 06/21/20 21:00 Pulse 65 06/22/20 08:50 Resp 18 06/22/20 00:20 BP 165/55 H 06/22/20 08:51 Pulse Ox 96 06/21/20 21:00 Orthostatic Blood Pressure [ 117/52 Standing] Orthostatic Blood Pressure [ 165/49 Sitting] Weight - Most Recent: 164 lb Med Orders - Current: Current Medications Acetaminophen (Tylenol Extra Strength) 500 mg PO Q6H [facility] Last Admin: 06/22/20 07:00 Dose: 500 mg Documented by: Albuterol (Ventolin Hfa) 0 gm INH Q4H PRN PRN Reason: Shortness of Breath Albuterol (Proventil Neb Soln) 2.5 mg NEB QID PRN PRN Reason: Shortness of Breath Last Admin: 06/17/20 09:19 Dose: 2.5 mg Documented by: Amlodipine Besylate (Norvasc) 10 mg PO BEDTIME [facility] Last Admin: 06/21/20 20:58 Dose: 10 mg Documented by: Ascorbic Acid (Vitamin C) 500 mg PO DAILY [facility] Last Admin: 06/22/20 08:52 Dose: 500 mg Documented by: Aspirin (Halfprin) 81 mg PO BID [facility] Stop: 07/06/20 23:59 Last Admin: 06/22/20 08:49 Dose: 81 mg Documented by: Aspirin (Halfprin) 81 mg PO DAILY [facility] Atorvastatin Calcium (Lipitor) 10 mg PO BEDTIME [facility] Last Admin: 06/21/20 20:57 Dose: 10 mg Documented by: Al Hydroxide/Mg Hydroxide 15 (ml/ Lidocaine HCl 15 ml) 0 ml PO Q3H PRN PRN Reason: Dyspepsia Last Admin: 06/17/20 02:15 Dose: 30 ml Documented by: Docusate Sodium (Colace) 100 mg PO DAILY [facility] Last Admin: 06/22/20 08:47 Dose: 100 mg Documented by: Ferrous Sulfate (Ferrous Sulfate) 325 mg PO DAILY [facility] Last Admin: 06/22/20 08:48 Dose: 325 mg Documented by: Hydroxyzine HCl (Vistaril) 50 mg IM Q6H PRN PRN Reason: Nausea/Vomiting Last Admin: 06/15/20 22:01 Dose: 50 mg Documented by: Isosorbide Mononitrate (Imdur) 30 mg PO DAILY [facility] Last Admin: 06/22/20 08:51 Dose: 30 mg Documented by: Metoclopramide HCl (Reglan) 5 mg PO Q6H PRN PRN Reason: Nausea/Vomiting Metoprolol Tartrate (Lopressor) 12.5 mg PO BID [facility] Last Admin: 06/22/20 08:50 Dose: 12.5 mg Documented by: Mometasone Furoate/Formoterol Fumar (Dulera 200-5 Mcg) 2 puff IH BID [facility] Last Admin: 06/22/20 08:47 Dose: 2 puff Documented by: Morphine Sulfate (Ms Contin) 15 mg PO BID [facility] Last Admin: 06/22/20 08:49 Dose: 15 mg Documented by: Nitroglycerin (Nitrostat) 0.4 mg SL Q5M PRN PRN Reason: Chest Pain Ondansetron HCl (Zofran Odt) 4 mg PO Q4H PRN PRN Reason: Nausea Last Admin: 06/18/20 20:43 Dose: 4 mg Documented by: Oxybutynin Chloride (Oxybutynin) 5 mg PO BID [facility] Last Admin: 06/22/20 08:50 Dose: 5 mg Documented by: Pantoprazole Sodium (Protonix) 40 mg PO BID [facility] Last Admin: 06/22/20 08:51 Dose: 40 mg Documented by: Polyethylene Glycol (Miralax) 17 gm PO DAILY [facility] Last Admin: 06/22/20 08:51 Dose: Not Given Documented by: Senna/Docusate Sodium (Senna Plus) 1 tab PO BID [facility] Last Admin: 06/22/20 08:51 Dose: 1 tab Documented by: Simethicone (Simethicone) 80 mg PO QIDPCANDBED PRN PRN Reason: Gas Sucralfate (Carafate) 1 gm PO QIDACANDBED [facility] Last Admin: 06/22/20 07:00 Dose: 1 gm Documented by: Venlafaxine HCl (Effexor Xr) 150 mg PO DAILY [facility] Last Admin: 06/22/20 08:48 Dose: 150 mg Documented by: Discontinued Medications Acetaminophen (Tylenol) 650 mg PO Q4H PRN PRN Reason: mild pain Last Admin: 06/10/20 06:54 Dose: 650 mg Documented by: Al Hydroxide/Mg Hydroxide (Mag-Al Susp) 30 ml PO Q4H PRN PRN Reason: Heartburn Last Admin: 06/13/20 12:15 Dose: 30 ml Documented by: Amlodipine Besylate (Norvasc) 5 mg PO BEDTIME [facility] Last Admin: 06/19/20 20:09 Dose: 5 mg Documented by: Al Hydroxide/Mg Hydroxide 15 (ml/ Lidocaine HCl 15 ml) 0 ml PO ONETIME ONE Stop: 06/14/20 11:32 Last Admin: 06/14/20 12:31 Dose: 30 ml Documented by: Al Hydroxide/Mg Hydroxide 15 (ml/ Lidocaine HCl 15 ml) 0 ml PO ONETIME ONE Stop: 06/16/20 08:25 Last Admin: 06/16/20 10:06 Dose: 30 ml Documented by: Al Hydroxide/Mg Hydroxide 15 (ml/ Lidocaine HCl 15 ml) 0 ml PO Q4H PRN PRN Reason: Dyspepsia Diltiazem HCl (Dilacor Xr) 240 mg PO DAILY [facility] Last Admin: 06/14/20 08:33 Dose: 240 mg Documented by: Diltiazem HCl (Cardizem Cd) 120 mg PO DAILY [facility] Last Admin: 06/15/20 08:35 Dose: 120 mg Documented by: Famotidine (Pepcid) 20 mg IVPUSH ONETIME ONE Stop: 06/15/20 15:09 Last Admin: 06/15/20 15:28 Dose: 20 mg Documented by: Lactated Ringer's (Ringers, Lactated) 1,000 mls @ 50 mls/hr IV ASDIRECTED [facility] Last Admin: 06/17/20 08:29 Dose: 75 mls/hr Documented by: Sodium Chloride (Normal Saline) 250 mls @ 100 mls/hr IV ASDIRECTED [facility] Ibuprofen (Motrin) 200 mg PO Q6H [facility] Last Admin: 06/14/20 12:34 Dose: 200 mg Documented by: Isosorbide Mononitrate (Imdur) 15 mg PO DAILY [facility] Last Admin: 06/21/20 08:33 Dose: 15 mg Documented by: Lactulose (Chronulac) 10 gm PO TID [facility] Last Admin: 06/14/20 08:30 Dose: 10 gm Documented by: Metoclopramide HCl (Reglan) 5 mg IVPUSH Q6H PRN PRN Reason: Nausea/Vomiting Metoprolol Tartrate (Lopressor) 25 mg PO BID [facility] Last Admin: 06/20/20 08:52 Dose: 25 mg Documented by: Oxybutynin Chloride (Oxybutynin) 5 mg PO TID [facility] Last Admin: 06/15/20 17:06 Dose: Not Given Documented by: Oxycodone HCl (Oxycodone) 5 mg PO Q4H PRN PRN Reason: pain 4-6/10 Stop: 06/12/20 16:00 Last Admin: 06/12/20 11:18 Dose: 5 mg Documented by: Oxycodone HCl (Oxycodone) 10 mg PO Q4H PRN PRN Reason: pain 7-10/10 Stop: 06/12/20 16:00 Last Admin: 06/09/20 19:00 Dose: 10 mg Documented by: Pantoprazole Sodium (Protonix) 40 mg PO DAILY@0600 [facility] Last Admin: 06/16/20 05:59 Dose: 40 mg Documented by: Simethicone (Simethicone) 80 mg PO QIDPCANDBED [facility] Last Admin: 06/15/20 12:55 Dose: 80 mg Documented by: Sodium Polystyrene Sulfonate (Kayexalate) 15 gm PO Q6H [facility] Last Admin: 06/15/20 16:33 Dose: Not Given Documented by: Tramadol HCl (Ultram) 50 mg PO Q6H PRN PRN Reason: Pain (severe 7-10) Stop: 06/16/20 23:59 Last Admin: 06/13/20 17:01 Dose: 50 mg Documented by: - Exam Lungs: Reports: Clear to Auscultation, Normal Respiratory Effort Cardiovascular: Reports: Regular Rate, Regular Rhythm GI/Abdominal Exam: Normal Bowel Sounds, Soft, Non-Tender, No Distention Skin: Reports: Warm, Dry, Intact, Ecchymosis (left hand)
[2020-07-07] MEDS ORDERED: Aspirin 81 MG Tab.EC PO SCH (09:00)
== END 2020-06-22 10:30 | disposition home health service (06) | DRG 560 ==
LOC: FB.MS 13:56
PROVIDERS: ADMIT Family Medicine; ATTEND Family Medicine
PROC: 30233N1 Transfusion of Nonautologous Red Blood Cells into Peripheral Vein, Percutaneous Approach (ICD-10-PCS; principal; 2020-06-17)
DX: Z47.1 Aftercare following joint replacement surgery (principal); F33.1 Major depressive disorder, recurrent, moderate; J98.11 Atelectasis; K56.7 Ileus, unspecified; N17.9 Acute kidney failure, unspecified; Z96.642 Presence of left artificial hip joint; I12.9 Hypertensive chronic kidney disease with stage 1 through stage 4 chronic kidney disease, or unspecified chronic kidney disease; K29.50 Unspecified chronic gastritis without bleeding; N18.30 Chronic kidney disease, stage 3 unspecified; J44.9 Chronic obstructive pulmonary disease, unspecified; K59.00 Constipation, unspecified; K29.70 Gastritis, unspecified, without bleeding; F41.9 Anxiety disorder, unspecified; I25.118 Atherosclerotic heart disease of native coronary artery with other forms of angina pectoris; D63.1 Anemia in chronic kidney disease; J30.9 Allergic rhinitis, unspecified; H91.90 Unspecified hearing loss, unspecified ear; H54.7 Unspecified visual loss; E78.00 Pure hypercholesterolemia, unspecified; G47.30 Sleep apnea, unspecified; K21.9 Gastro-esophageal reflux disease without esophagitis; M54.9 Dorsalgia, unspecified; G89.29 Other chronic pain; R53.81 Other malaise; R07.89 Other chest pain; E87.5 Hyperkalemia; R00.1 Bradycardia, unspecified; Z79.82 Long term (current) use of aspirin; Z79.899 Other long term (current) drug therapy; Z98.49 Cataract extraction status, unspecified eye
CPT/HCPCS: 36415; 36430; 74022; 80048; 81001; 82270; 82570; 84132; 84300; 84484; 85014; 85018; 85025; 86850; 86900; 86901; 86920; 86922; 93005; 94150; 94640; 97110-GP; 97116-GP; 97161-GP; 97165-GO; 97530-GO; 97530-GP; 97535-GO; 99304; A9270-GY; J3410; J3490; J7120; P9016

== ENCOUNTER 2021-11-01 14:20 | Emergency (ER) | payer MEDICARE ==
[2021-11-01] MEDS: Sodium Chloride 0.9% 1,000 ML IV ONE (14:40)
[2021-11-01] MEDS ORDERED: Sodium Chloride 0.9% 10 ML Syringe FLUSH PRN (14:41)
[2021-11-01] MEDS: Ondansetron 4 MG/2 ML SDV IVPUSH ONE (14:47)
== END 2021-11-01 15:50 | disposition home or self-care (01) ==
LOC: FB.ED 14:20
DX: U07.1 COVID-19 (principal); E78.00 Pure hypercholesterolemia, unspecified; I10 Essential (primary) hypertension; Z79.899 Other long term (current) drug therapy; Z79.82 Long term (current) use of aspirin; Z72.0 Tobacco use
CPT/HCPCS: 36415; 80048; 81001; 85025; 96374; 99282; 99284-25; J2405; J7030